=== PATIENT | male | born 1950 | race Caucasian/White ===

== ENCOUNTER → 2016-12-31 | Outpatient (CLI) | payer OTHER, MEDICARE | LOC: ULTRA 13:18 | DX: E03.9 Hypothyroidism, unspecified (principal) ==

== ENCOUNTER → 2017-05-04 | Outpatient (CLI) | payer OTHER ==
[~2017-05-04] MED LIST: APPLE CIDER VI300 MG PO; CENTRUM SILVER1 EAC4 PO; CLOTRIMAZOLE10 MG TOP; COZAAR 50 MG TA50 M2 PO; ESOMEPRAZOLE MA20 MG PO; FOLIC ACID 1 MG1 MG PO; KETOCONAZOLE15 GM TOP; LEVAQUIN 500 M500 M1 PO; MIRALAX17 GM PO; NAPROSYN500 MG PO; ONDANSETRON HCL4 M2 PO; PREDNISONE 10 M10 MG PO; TESTONE CI200 MG/1 M IM; TYLENOL PM EX-1 EACH PO; VIMOVO 500-201 EACH PO; VITAMIN C + RO500 MG PO; VITAMIN D-32000 UNIT PO; VITAMINC500 PO
== END ==
LOC: CAT 15:18
DX: Z13.6 Encounter for screening for cardiovascular disorders (principal)

== ENCOUNTER → 2017-05-05 | Outpatient (CLI) | payer OTHER, MEDICARE | LOC: RAD 13:50 | DX: R91.8 Other nonspecific abnormal finding of lung field (principal) ==

== ENCOUNTER → 2017-05-06 | Outpatient (CLI) | payer OTHER, MEDICARE ==
[2017-05-06 08:32] LABS: CREATININE 1.1 mg/dL (0.7-1.3)
== END ==
LOC: CAT 07:48
PROVIDERS: Family Medicine
DX: M47.894 Other spondylosis, thoracic region (principal); M48.061 Spinal stenosis, lumbar region without neurogenic claudication; R91.8 Other nonspecific abnormal finding of lung field; R16.1 Splenomegaly, not elsewhere classified

== ENCOUNTER → 2017-05-13 | Outpatient (CLI) | payer OTHER, MEDICARE | LOC: CAT 05-06 07:47 → MRI 10:09 → PUL 10:37 | DX: R91.8 Other nonspecific abnormal finding of lung field (principal); J32.9 Chronic sinusitis, unspecified ==

== ENCOUNTER → 2017-05-14 | Outpatient (CLI) | payer OTHER, MEDICARE | LOC: PET | DX: R91.8 Other nonspecific abnormal finding of lung field (principal) ==

== ENCOUNTER 2017-06-08 05:17 | Inpatient (IN) | payer OTHER, MEDICARE ==
[2017-06-03 10:35] LABS: ABSOLUTE NEUTROPHILS 6.8 thou/uL (1.4-8.2); BASOPHILS 0.4 % (0.0-2.0); EOSINOPHILS 2.5 % (0.0-3.0); HEMATOCRIT 41.1 % (42.0-52.0); HEMOGLOBIN 14.2 gm/dL (14.0-18.0); LYMPHOCYTES 22.7 % (24.0-44.0); MCH 31.5 pg (26.0-34.0); MCHC 34.5 g/dL (28.0-37.0); MCV 91.3 fL (80.0-100.0); MONOCYTES 8.2 % (1.0-8.0); PLATELET COUNT 263 thou/uL (150-400); POLYS 66.2 % (36.0-66.0); WBC 10.3 thou/uL (4.0-11.0)
[2017-06-03 10:40] LABS: URINE BILIRUBIN NEGATIVE (Negative); URINE BLOOD NEGATIVE (Negative); URINE CLARITY CLEAR; URINE COLOR YELLOW; URINE GLUCOSE-RANDOM* NEGATIVE (Negative); URINE KETONES NEGATIVE (Negative); URINE LEUKOCYTES NEGATIVE (Negative); URINE NITRITE NEGATIVE (Negative); URINE PROTEIN (DIPSTICK) NEGATIVE (Negative)
[2017-06-03 10:47] LABS: APTT 31.1 Seconds (24.5-32.8)
[2017-06-03 10:51] LABS: ALBUMIN 3.8 g/dL (3.4-5.0); CALCIUM 9.4 mg/dL (8.5-10.1); CREATININE 1.1 mg/dL (0.7-1.3); POTASSIUM 4.4 mmol/L (3.5-5.1)
[~2017-06-08] VITALS: Ht 167.6 cm; Wt 100.0 kg
--- NOTE | ~2017-06-08 | HC ---
[facility] [place] [address] CONSULTATION Name: ISRAEL HOLMAN Room #: 213-P ADM IN M.R.#: [id number] Admission: 06/08/17 Attend Phys: Nasim Ohara MD Discharge: Date of : 52 Report #: [id number] THIS REPORT FOR: //name// CC: Logan Guthrie MD PHYSICIAN REQUESTING CONSULTATION: Nasim Ohara MD. REASON FOR CONSULTATION: Left lower lobe lung cancer. HISTORY OF PRESENT ILLNESS: The patient is a very pleasant 66-year-old gentleman who grew up lives in [place], [place]. He was undergoing a cardiac evaluation because of unusual hypertension higher in his right arm than the left arm, was found to have a left lower lobe mass. This measured approximately 6 cm in diameter. A PET scan showed that this was PET avid but did not show up any mediastinal lymph nodes. An MRI of the brain was reported negative also. Reports are that his pulmonary function tests were normal. The patient underwent surgery on 06/08/2017. I talked with Dr. Ohara and he states that were thought that the lymph nodes and mediastinal appeared fairly normal. On exam, he is concerned about an intralobar lymph node. The patient is now postop in room 213 on the PCU. The patient says that prior to surgery, he had no unusual fevers, chills, has lost about 5 pounds since admission, had not had any new reflux. Had not had any new skin rashes. Had not had any diarrhea, constipation, dysuria, though he states his urine is slow. No blood in his urine or stool. I believe he says he has never had a colonoscopy, which we may need to address or should address when he is out of the hospital. Today, he is having some chest discomfort on the left side from the surgery, but appears otherwise has been doing well. SOCIAL HISTORY: As mentioned above, he is originally from [place]. 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 He stopped smoking 5 years ago. Prior to that, 1 pack per day for 20 years. There may have been some asbestos exposure with his work. We did have to clarify that may be and a fairly regular basis, has either 2-3 beers at night or one mixed drink. No street drugs. FAMILY HISTORY: Father from what sounds like lymphoma. Mother had scleroderma and from complications. One brother alive and well, one stepchild. He also has a grandchild who is a son who is 14 years old and both are very smart and a good athlete, sounds like the grandson plays baseball and went to the [employer] so to speak, I think he said in [place] and the grandson is a catcher. [facility] [address] [place] [address] CONSULTATION Name: ISRAEL HOLMAN Room #: 213-P ADM IN M.R.#: [id number] Admission: 06/08/17 Attend Phys: Nasim Ohara MD Discharge: Date of : 52 Report #: [id number] PAST MEDICAL HISTORY: Recent resection of left lower lobe mass, pathology pending. Also, history of severe right ankle arthritis. He has talked with Dr. Bernard about possible fusion in the future. He also has a history of low testosterone levels, has been on testosterone replacement, also has GERD. We will have to check to see if he has ever had a scope test. Also, he has been on losartan and ascorbic acid. PAST SURGICAL HISTORY: Includes appendectomy. PHYSICAL EXAMINATION: GENERAL: The patient appears his stated age. VITAL SIGNS: He is currently seated in a chair with a chest tube and oxygen nasal cannula. He states he was not on oxygen at home, height is 5 feet 6 inches, which is 167.6 cm. Weight is 220.4 pounds, which is 99.97 kilograms. Vital signs this morning include a blood pressure of 105/68 with an O2 sat of 96% on 2 liters, respirations 19, pulse 79, temperature is afebrile at 97.7. MOOD: The patient is alert, pleasant and conversant. NEUROLOGIC: The patient's face is symmetrical. Speech pattern and thought pattern appear to be normal. He is moving all extremities. In general, he has awareness of touch in all extremities. His voice is a little bit raspy today since the surgery. He says he gets a little better as the day goes along. LUNGS: Slightly decreased in the left lower base. HEART: Appears regular rate. No definite murmurs. ABDOMEN: Slightly obese. LYMPHATICS: No enlarged lymph nodes in the supraclavicular, cervical, axillary or inguinal region. EXTREMITIES: May have trace edema. LABORATORY HERE: Here this admit include BUN of 20, creatinine of 1.1, AST 21, ALT 26, albumin was 3.8, total protein 7.8. Electrolytes were normal. White count on admission 15.5, hemoglobin 12.6, platelets 298. Differential nonacute. UA did not have any red cells, white cells, nitrite was negative. RADIOLOGIC STUDIES: The patient had a CT calcium test on 05/04/2017, reports not available. He had a CT chest, abdomen and pelvis on 05/06/2017 showing a large left lower lobe mass extending from the hilum to the pleural suspicious for malignancy with a mildly large AP window and mediastinal lymph node. There is also sclerosis and degenerative changes in the spine. MRI head done on 05/13/2017, which was described as no abnormal intracranial process. We did show sinusitis PET scan on 05/14/2017 was whole body and described a fluid filled cavitary mass in the upper portion of the left lower lobe measuring 59 mm transverse by 42 mm AP x 50 mm longitudinally strong FDG accumulation with an SUV of 19 confined to the margins of the mass. No evidence of extension to the left niyah, no evidence of hilar adenopathy. No mediastinal adenopathy or mass. No other pulmonary uptake identified. Normal activity in the abdomen, no evidence of abnormal adrenal activity. [address] [address] CONSULTATION Name: ISRAEL HOLMAN Room #: 213-P ADM IN M.R.#: [id number] Admission: 06/08/17 Attend Phys: Nasim Ohara MD Discharge: Date of : 52 Report #: [id number] DISCUSSION: Discussed with the patient that we are concerned and he has a nonsmall cell lung cancer. Discussed that we are awaiting the stage of this. It may be of a size such that adjuvant chemotherapy might be a consideration. consider chemotherapy because of a potential additional survival benefit between 8% and 12% to await the final stage to clarify this with the patient. Also told him that if we do decide to do adjuvant chemotherapy, which he has initiated, 4-6 weeks after surgery. ASSESSMENT AND PLAN: 1. Probable left lower lobe bronchogenic carcinoma. Await final path report and we will clarify further with the patient treatment options with regard to adjuvant therapy. 2. Hypertension. Continue Meds as needed. 3. testosterone Meds as needed. 4. Reflux. Continue acid blockers. We will follow with you. CURRENT MEDICATIONS: Being administered in the hospital include losartan 100 mg daily, famotidine 20 mg b.i.d., docusate 100 mg b.i.d., fentanyl RESIN MAKER, electrolyte replacements with potassium and magnesium, bisacodyl, Reglan 5 mg q.6h. IV p.r.n., Zofran 4 mg q.6IV p.r.n., hydrocodone p.r.n., Tylenol p.r.n. <ELECTRONICALLY SIGNED> By: Sammy Coronado MD 06/11/17 0743 0811 1814 Sammy Coronado MD /nt
--- NOTE | ~2017-06-08 | HC ---
[facility] [place] [address] CONSULTATION Name: ISRAEL HOLMAN Room #: 213-P [facility] IN M.R.#: [id number] Admission: 06/08/17 Attend Phys: Nasim Ohara MD Discharge: 06/14/17 Date of : 52 Report #: [id number] THIS REPORT FOR: //name// CC: PACO THOMAS DATE OF SERVICE: 06/09/2017 REFERRING PROVIDER: Dr. Nasim Ohara. REASON FOR CONSULTATION: Lung cancer. HISTORY OF PRESENT ILLNESS: Our group was asked to evaluate the patient while hospitalized at [facility], known to me from preoperative workup. He is a pleasant 66-year-old male who we have been evaluating preoperatively for left lower lobe lung mass 6 cm in diameter noted coincidentally when the patient was undergoing a cardiac calcium score, a PET imaging preoperatively showed only uptake in the mass with no nodes positive. MRI of the brain was negative. The patient's pulmonary function testing was good. The patient has had significant exposures in the past that were work-related and about [id number] history of tobacco use. The patient underwent left lower lobectomy yesterday. He is doing well postoperatively, up in the chair with reasonable pain control with epidural. No significant air leak noted ____ left chest. ALLERGIES: None known. PAST MEDICAL HISTORY: 1. Hypertension. 2. Gastroesophageal reflux disease. OUTPATIENT MEDICATIONS: Include Naprosyn, testosterone, multivitamin, losartan, Nexium and ascorbic acid. PAST SURGICAL HISTORY: Include appendectomy. SOCIAL HISTORY: Prior tobacco use of [id number], quitting about 5 years ago. No significant alcohol consumption, perhaps 4-5 alcoholic beverages per week. 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 REVIEW OF SYSTEMS: Twelve-point review of systems is negative except as described in HPI and some nocturia. [facility] [address] [place] [address] CONSULTATION Name: ISRAEL HOLMAN Room #: 213-P [facility] IN [facility].#: [id number] Admission: 06/08/17 Attend Phys: Nasim Ohara MD Discharge: 06/14/17 Date of : 52 Report #: [id number] PHYSICAL EXAMINATION: VITAL SIGNS: He is afebrile, pulse 100 and regular, respiratory rate 18, blood pressure is 142/73. GENERAL: This is a pleasant elderly male, in no distress. ENT: Clear oropharynx. NECK: Supple, no lymphadenopathy. LUNGS: Diminished on the left with pleural friction rub noted. CARDIOVASCULAR: Heart regular, but tachycardic. ABDOMEN: Soft, nontender, no masses. EXTREMITIES: With trace edema. LABORATORY DATA: Chest x-ray revealed left chest tubes in place, minimal atelectasis in the right lung. White blood cell count 16,000, hemoglobin 13, hematocrit 36, platelet count 298. Sodium 138, potassium 4.6, chloride 104, bicarbonate 24, BUN 20, creatinine 1.1, glucose 136. IMPRESSION: 1. Malignancy status post left lower lobe lobectomy. 2. History of hypertension. SUGGESTIONS: 1. Oncology consultation. 2. Mobilize as tolerated. 3. Keep in ICU, likely stable to transfer out tomorrow if remains improved. We will continue to follow while inpatient. <ELECTRONICALLY SIGNED> By: Cristobal Guthrie MD 06/16/17 1233 1717 2209 Cristobal Guthrie MD /nt
--- NOTE | ~2017-06-08 | EKG ---
[address] [place] [address] ELECTROCARDIOGRAM REPORT Name: ISRAEL HOLMAN Room #: PRE IN [facility]#: [id number] Admission: Attend Phys: Nasim Ohara MD Discharge: Date of : 52 Report #: [id number] THIS REPORT FOR: //name// [facility] Test Date: 2017-06-03 Test Time: 10:18:13 Pat Name: ISRAEL HOLMAN Department: Room: Gender: Still Operator: Ac GARCES : 1950 Requested By: Nasim Ohara Order Number: [id number] MD: Lizandro Estrada Measurements Intervals [place] Rate: 63 P: 46 MA: 131 QRS: 6 QRSD: 84 T: 31 QT: 449 QTc: 460 Interpretive Statements Sinus rhythm Normal tracing No previous ECG available for comparison Electronically Signed On 06-03-2017 16:00:39 MECHANICAL MAINTENANCE by Lizandro Estrada [email or web address] <ELECTRONICALLY SIGNED> By: Lizandro Estrada MD, [facility] 06/03/17 1600 1018 1018 Lizandro Estrada MD, FACC /EPI
--- NOTE | ~2017-06-08 | HC ---
[facility] [place] [address] CONSULTATION Name: ISRAEL HOLMAN Room #: 213-P [facility] IN M.R.#: [id number] Admission: 06/08/17 Attend Phys: Nasim Ohara MD Discharge: 06/14/17 Date of : 52 Report #: [id number] THIS REPORT FOR: //name// CC: Logan Coronado MD DATE OF SERVICE: 06/10/2017 CHIEF COMPLAINT: Status post left lower lobectomy for lung mass. HISTORY OF PRESENT ILLNESS: The patient is a 66-year-old white male well known to me as I provided primary medical care. He was found to have a large lung mass and was admitted on June 08 for resection of his left lower lobe. He is doing well postoperatively and initial cath does show nonsmall cell lung cancer. This mass was noted as an incidental finding when he was sent in late April for calcium score for screening for coronary artery disease. Subsequently, a CT was done that showed large mass. CT chest, abdomen and pelvis were done subsequently and were free of lesions and subsequent to that he had MRI of the brain that was also free of disease. He has seen Dr. Guthrie, [employer] architect in Pulmonary Medicine consultation and he is admitted to Dr. Ohara's service for surgery. PAST MEDICAL HISTORY: Arthritis, multiple ankle sprains, pilonidal cyst, appendectomy, hypogonadism, hypertension diagnosed in 2011, recent diagnosis of lung mass, gastroesophageal reflux disease. PAST SURGICAL HISTORY: Includes appendectomy. MEDICATIONS: Naprosyn, IM testosterone, multivitamins, losartan 100 mg 1 p.o. daily, Nexium 20 mg 1 p.o. daily, vitamin C 500 mg p.o. daily, testosterone 200 mg IM q.2-4 weeks. ALLERGIES: No known drug allergies. SOCIAL HISTORY: , has a prior tobacco use of 20 pack years, quitting 5 years ago. Drinks alcohol socially. 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 He is and lives in [place], [place]. FAMILY HISTORY: Father had cancer involving his lymph nodes. Mother of scleroderma, no family history of colon cancer. REVIEW OF SYSTEMS: GENERAL: No fever, chills, nausea, vomiting, diarrhea. [facility] [address] [place] [address] CONSULTATION Name: ISRAEL HOLMAN Room #: 213-P [facility] IN .R.#: [id number] Admission: 06/08/17 Attend Phys: Nasim Ohara MD Discharge: 06/14/17 Date of : 52 Report #: [id number] EYES: No visual changes. ENT: No problems with hearing, swallow, taste or smell. CARDIOVASCULAR: No chest pain or palpitations. RESPIRATORY: He has a confirmed lung mass. He has had a cough over about the last 6 months. GASTROINTESTINAL: No abdominal pain. GENITOURINARY: No problems urinating. MUSCULOSKELETAL: No muscle pain. He does have arthritis. NEUROLOGIC: No paresis, paralysis or paresthesias. PSYCHIATRIC: Concerned but not depressed. DERMATOLOGIC: No disturbing lesions or rash. Remainder of system review is negative. OBJECTIVE: VITAL SIGNS: Afebrile, respiratory rate 18, pulse 100, blood pressure 142/73. GENERAL: He is in no acute distress. He has a left-sided chest tube. HEENT: Pupils equal, round, reactive to light and accommodation. Extraocular muscles intact. Pharynx unremarkable. NECK: Supple. COR: S1, S2. CHEST: Few coarse breath sounds, diminished on left side. ABDOMEN: Soft, nontender. EXTREMITIES: No edema. NEUROLOGIC: Intact without focal deficits. Chest x-ray shows atelectasis in the right lung, linear and multifocal in the right base, left chest tubes in place. LABORATORY DATA: White count 16,000, hemoglobin 13, hematocrit 36, platelets 298. Sodium is 138, potassium 4.6, chloride 104, bicarbonate 24, BUN 20, creatinine 1.1, glucose 136. ASSESSMENT: 1. Lung cancer, new diagnosis. 2. Status post left lower lobectomy. 3. Postop state with chest tube. 4. Atelectasis. 5. Hypertension. 6. Remote history of tobaccoism. RECOMMENDATIONS: Continue current meds and care. Discussed incentive [address] [address] CONSULTATION Name: ISRAEL HOLMAN Room #: 213-P [facility] IN ..#: [id number] Admission: 06/08/17 Attend Phys: Nasim Ohara MD Discharge: 06/14/17 Date of : 52 Report #: [id number] spirometry, early mobility and Oncology and Radiation Oncology consult is working. <ELECTRONICALLY SIGNED> By: Logan Tian MD, IDRIS, FACEP 06/16/17 1001 1310 1528 Logan Tian MD, IDRIS, FACEP /nt
--- NOTE | ~2017-06-08 | S ---
[facility] [place] [address] SURGICAL PATH RPT PROCEDURE Name: TOMMY MELO Room #: 213-P DIS IN M.R.#: [id number] Admission: 06/08/17 Date of : 52 Discharge: 06/14/17 Report #: [id number] Path Case #: [id number] PATHOLOGY REPORT COLLECTION DATE: 06/08/2017 RECEIVED DATE: 06/08/2017 SUBMITTING PHYS: Dr. Nasim Ohara OTHER PHYS: Dr. Logan Guthrie ADDENDUM REPORT (Order Date: 06/14/2017 10:57) ADDENDUM COMMENT: This addendum is issued subsequent to reviewing a well-controlled AE1/AE3 immunohistochemical stain ordered after discussing the case with Dr. Guthrie. AE1/AE3 immunohistochemical stain performed on block D1 - no definite intact malignant epithelial cells identified within the artery or the surrounding soft tissue. The immunohistochemical stain likely supports no evidence of malignancy at the new "pulmonary artery" margin. The non-reactivity; however, may be due to lack of intact epithelial cells as well as the crush artifact identified. Clinical correlation is required. These findings are communicated to Dr. Cristobal Guthrie at approximately 10:20 a.m. on 06/14/2017. (IUV:sherley; 06/14/2017) Professional services performed by [facility] at [facility] [address] [place] [address] Technical services performed by [facility] at [address] [place] [address], [address] [place] [address]. ELECTRONICALLY SIGNED BY: Ashlee Helms M.D. DATE/TIME:06/14/2017 14:44 SPECIMEN(S) RECEIVED: A.L subcarinal lymph node B.L inferior pumonary ligament C.Pulmonary artery D.Additional pulmonary artery E.Lymph node level 11 F.Left lower lobe G.Lymph node level 5 * * * * * * * * * * * * [facility] [address] [place] [address] SURGICAL PATH RPT PROCEDURE Name: TOMMY MELO Room #: 213-P [facility] IN [facility]#: [id number] Admission: 06/08/17 Date of : 52 Discharge: 06/14/17 Report #: [id number] Path Case #: [id number] FINAL DIAGNOSIS: A. Lymph nodes (2), left subcarinal lymph node, dissection: - Reactive lymph nodes with macrophages; negative for malignancy (0/2). B. Lymph node (1) left inferior pumonary ligament, biopsy: - Reactive lymph node with pigmented macrophages; negative for malignancy (0/1). C. Artery, pulmonary artery, biopsy: - POSITIVE FOR MALIGNANCY; NON-SMALL CELL CARCINOMA PRESENT. D. Artery, additional pulmonary artery, biopsy: - ATYPICAL CRUSHED CELLS, CANNOT EXCLUDE NEOPLASTIC CELLS (PLEASE SEE COMMENT). E. Lymph nodes (2), lymph node level 11, dissection: - Reactive lymph nodes with macrophages; negative for malignancy (0/2). F. 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 - PULMONARY ARTERY AT MARGIN POSITIVE FOR MALIGNANCY. - LYMPHOVASCULAR SPACE INVASION PRESENT. - ONE HILAR LYMPH NODE POSITIVE FOR METASTATIC CARCINOMA DUE TO DIRECT EXTENSION (1/1). G. Lymph nodes (6), lymph node level 5, dissection: - Reactive lymph nodes with pigmented macrophages; negative for malignancy (0/6). SYNOPTIC CANCER STAGING REPORT SPECIMEN Procedure: Lobectomy Specimen Laterality: Left TUMOR Tumor Site: Lower lobe Histologic Type: Invasive squamous cell carcinoma, keratinizing Histologic Grade: G2: Moderately differentiated Tumor Size: For histologic types other than invasive nonmucinous adenocarcinoma with a lepidic component Tumor Size: Greatest dimension in Centimeters (cm): 6.6 Additional Dimension in Centimeters (cm): 5.5 Additional Dimension in Centimeters (cm): 4.2 Tumor Focality: Single tumor Tumor Extent Visceral Pleura Invasion: Not identified Direct Invasion of Adjacent Structures: Adjacent structures present and involved Great vessels Accessory Findings Treatment Effect: No known presurgical therapy [address] [address] SURGICAL PATH RPT PROCEDURE Name: RIVERTOMMY New Room #: 213-P [facility] IN M.R.#: [id number] Admission: 06/08/17 Date of : 52 Discharge: 06/14/17 Report #: [id number] Path Case #: [id number] Lymphovascular Invasion: Present Arterial MARGINS Margins: One or more margins are involved by carcinoma, or any margin cannot be assessed Bronchial Margin: Uninvolved by invasive carcinoma Status of Carcinoma in Situ at Bronchial Margin: Uninvolved by carcinoma in situ Vascular Margin: Involved by carcinoma Parenchymal Margin: Uninvolved by invasive carcinoma Other Attached Tissue Margin(s) (repeat as needed) Specify Margin(s): Specify margin: Pulmonary artery Margin Status: Involved by invasive carcinoma LYMPH NODES Regional Lymph Nodes: Number of Lymph Nodes Involved: Number of Lymph Nodes Involved: Specify number: 1 Charles Stations Involved: 10L: Hilar Extranodal Extension: Present Number of Lymph Nodes Examined: Specify number: 12 Charles Stations Examined: 7: Subcarinal 5: Subaortic/ aortopulmonary (AP) / AP window 9L: Pulmonary ligament 10L: Hilar 11L: Interlobar PATHOLOGIC STAGE CLASSIFICATION (PTNM, AJCC 8TH EDITION) Primary Tumor (pT): pT4: Tumor > 7 cm in greatest dimension; or tumor of any size invading one or more of the following: diaphragm, mediastinum, heart, great vessels, trachea, recurrent laryngeal nerve, esophagus, vertebral body or chika; or separate tumor nodule(s) in an ipsilateral lobe different from that of the primary Regional Lymph Nodes (pN): pN1: Metastasis in ipsilateral peribronchial and / or ipsilateral hilar lymph nodes, and intrapulmonary nodes including involvement by direct extension COMMENT: D: Examination shows markedly crushed atypical epithelioid cells present within the soft tissue surrounding the vessel wall. These cells are highly suspicious for malignant epithelial cells. A definitive diagnosis is precluded due to the crush artifact as well as frozen section artifact present in this tissue. Motor Bus Driver slides (C1, D1, F3) are co-reviewed by Dr. Alee Watson, who concurs with my diagnosis. (IUV:mgr; 06/10/2017) PATHOLOGIST: Ashlee Helms M.D. [facility] [place] [address] SURGICAL PATH RPT PROCEDURE Name: TOMMY MELO Room #: 213-P DIS IN M.R.#: [id number] Admission: 06/08/17 Date of : 52 Discharge: 06/14/17 Report #: [id number] Path Case #: [id number] REPORT ELECTRONICALLY SIGNED BY: Ashlee Helms M.D. DATE/TIME: 06/10/2017 16:58 * * * * * * * * * * * * GROSS PATHOLOGY: A. Received fresh from the OR is a specimen labeled with the patient's name, medical record number and "left subcarinal lymph node". The specimen consists of a fragment of pink-yellow, fibrofatty tissue measuring 2.0 x 0.4 x 0.3 cm. Two dark purple lymph nodes are discovered through palpation measuring 0.8 cm and 0.6 cm in greatest diameter. The specimen is entirely submitted for frozen section in one cassette labeled A1. B. Received fresh from the OR and labeled with the patient's name, medical record number and "left inferior pulmonary ligament", is a single fragment of yellow-pink, fibroadipose tissue measuring 1.5 x 1.3 x 0.4 cm. A single lymph node is discovered via palpation measuring 0.7 cm in greatest diameter and dark purple in color. The specimen is entirely submitted for frozen section in one cassette labeled B1. C. Received fresh from the OR and labeled with the patient's name, medical record number and "pulmonary artery", is a fragment of yellow-pink soft tissue measuring 1.5 x 0.7 x 0.4 cm. The specimen is entirely submitted for frozen section in one cassette labeled C1. D. Received fresh from the OR and labeled with the patient's name, medical record number and "additional pulmonary artery", is a fragment of yellow-pink soft tissue measuring 2.0 x 0.4 x 0.4 cm. The specimen is entirely submitted for frozen section in one cassette labeled D1. (MAP/db; 06/09/2017) E. The specimen is received in formalin labeled "Tommy Melo, lymph node level XI". Received are two segments of buitrago-brown lobulated tissue measuring 1.2 x 0.7 x 0.1 and 1.1 x 1.1 x 0.6 cm in greatest dimensions. The larger segment is inked. Sectioning through the larger segment reveals dark brown to black Surfaces. The smaller segment is submitted intact in the larger segment is bisected. The specimen is submitted entirely in cassette E1. F. The specimen is received in formalin labeled "Tommy Melo, left lower lobe". Received is a 362 g lobe of lung measuring 16.6 x 11.5 x 6.2 cm in greatest dimensions. The bronchial and arterial margins are opened. The adjacent vein margin is stapled closed. The pleural surface is pink-buitrago and slightly wrinkled in appearance. Near the bronchial margin, the lung is firm and the surrounding pleural surface is inked blue. Sectioning reveals a large white-white, friable to hemorrhagic-appearing mass measuring 6.6 x 5.5 x 4.2 cm, which grossly abuts the bronchial and arterial margin. The center of the mass is cavitary and the periphery is solid to moderately friable in appearance. The remainder of the lobe is comprised of normal red-white [facility] [address] [place] [address] SURGICAL PATH RPT PROCEDURE Name: TOMMY MELO Room #: 213-P DIS IN M.R.#: [id number] Admission: 06/08/17 Date of : 52 Discharge: 06/14/17 Report #: [id number] Path Case #: [id number] brown lung parenchyma, with no additional nodules or lesions noted grossly. Sectioning through the specimen near the bronchial margin reveals a single possible lymph node, displaying waxy cut surfaces, measuring 1.0 cm in maximum dimensions. F1 bronchial and adjacent vascular margin, en face F2 adjacent vein margin, en face F3 client care representative section of mass and adjacent bronchus F4-F8 additional client care representative sections of mass F9 client care representative sections of uninvolved parenchyma F10 possible lymph node near bronchial margin. Gross photographs are taken. G. The specimen is received in formalin labeled "Tommy Melo, lymph node level V". Received are multiple segments of yellow-white lobulated tissue measuring 1.8 x 1.7 x 0.5 cm in aggregate dimensions. Dissection and palpation of the specimen reveals no readily identifiable lymph node. The specimen is submitted entirely in cassette G1. (CAA; 06/09/2017) FROZEN SECTION DIAGNOSIS: (Jeanne Monterroso M.D.) FSA1. Left subcarinal lymph node: - Two lymph nodes negative for malignancy. FSB1. Left inferior pulmonary ligament: - One lymph node negative for malignancy. - These results were discussed with Dr. Ohara on 06/08/17 at 1539 hours. FSC1. Pulmonary artery: - Positive for malignancy. - These results were discussed with Dr. Ohara on 06/08/17 at 1609 hours. FSD1. Additional pulmonary artery: - Negative for malignancy. - These results were discussed Dr. Ohara on 06/08/17 at 1638 hours. (MAP/db; 06/09/2017) Testing performed by [facility] at [facility] [place] [address] CLINICAL HISTORY: Left lung mass INITIAL CPT CODE(S): A; 65492, 09372 B; 88318, 52943 C; 93079, 91075 D; 58846, 82852, 44440 [facility] [place] [address] SURGICAL PATH RPT PROCEDURE Name: TOMMY MELO Room #: 213-P [facility] IN M.R.#: [id number] Admission: 06/08/17 Date of : 52 Discharge: 06/14/17 Report #: [id number] Path Case #: [id number] E; [id number] F; [id number] G; [id number] Professional services performed by [facility] at [place] [address], [place] [address] Technical services performed by [facility] at [address] [place] [address], [place] [address]. [facility] [address] [place] [address] PHONE: [phone] DIRECTOR: Preston Edmondson M.D. * * * END OF REPORT * * *
--- NOTE | ~2017-06-08 | O ---
[facility] [place] [address] OPERATIVE REPORT Name: ISRAEL HOLMAN Room #: 213-P [facility] IN M.R.#: [id number] Admission: 06/08/17 Attend Phys: Nasim Ohara MD Discharge: 06/14/17 Date of : 52 Report #: [id number] THIS REPORT FOR: //name// CC: Logan Coronado MD DATE OF SERVICE: 06/08/2017 PREOPERATIVE DIAGNOSIS: Left lower lobe mass. 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 OPERATIVE PROCEDURE PERFORMED: 1. Left thoracotomy with left lower lobe lobectomy. 2. Thoracic lymphadenectomy. SURGEON: Nasim Ohara MD FILER AND SANDER: Gerardo Kaufman. ANESTHESIA: General. OPERATIVE INDICATIONS: The patient is a 66-year-old male who was recently found to have a large mass in his left lower lobe on chest x-ray. Evaluation with CT scan confirmed the mass. It showed no evidence of significant mediastinal adenopathy. PET imaging demonstrated no evidence of metastatic disease and there was a large SUV indicating increased uptake in the left lower lobe. The patient was brought to the operating room now for further evaluation and management. OPERATIVE SUMMARY: The patient was brought to the operating room, placed on the OR table in supine position. After anesthesia was induced via the general endotracheal route and monitoring lines were positioned, the patient was placed in the right lateral decubitus position and prepped and draped in sterile fashion with chlorhexidine. It should be noted that an epidural catheter was placed preoperatively. A standard posterolateral thoracotomy incision was made on the patient's left side. Dissection was carried down through the latissimus dorsi muscle and we entered the pleural space through the fifth intercostal space. We immediately noted that there were dense adhesions between the upper lobe and lower lobe and also between both upper and lower lobes to the chest wall in the apical segment of the lower lobe. These adhesions were taken down with electrocautery; however, to gain full exposure we did divide the 5th rib, but did not resect any rib. There was no evidence of tumor encroachment into the wall, but we did remove parietal pleura to mobilize the pulmonary segment. [facility] [address] [place] [address] OPERATIVE REPORT Name: RIVERISRAEL New Room #: 213-P [facility] IN ..#: [id number] Admission: 06/08/17 Attend Phys: Nasim Ohara MD Discharge: 06/14/17 Date of : 52 Report #: [id number] Next, we mobilized the inferior pulmonary ligament and navigated and mobilized the hilum. We dissected nodes in the subcarinal space at this time, in which there were positive nodes noted. We also dissected nodes in the inferior pulmonary ligament. We dissected the inferior pulmonary vein from surrounding tissue and divided it with an Endo-ADILIA stapler. Next, we attempted to mobilize in the fissure. We could do so in the proximal and distal aspects of the fissure, but in the mid aspect the upper and lower lobes were well adhesed to one another. I used an Endo-ADILIA stapler to divide a small portion of the right upper lobe to include with the specimen. Using the stapler and electrocautery, we were able to work our way down to the fissure into the pulmonary artery. We carefully dissected away upper lobe and lower lobe from the pulmonary artery. Despite this, we were unable to place a stapler across the artery in the fissure and preserve upper lobe vessels. I therefore placed a Satinsky clamp on the pulmonary artery shifting it proximally and then dividing the artery distally. The artery was then oversewn with a 4-0 Prolene suture in 2 layers and the clamp was removed. Hemostasis was readily apparent. The bronchus was dissected and then divided with a TA 30 stapler. The specimen was removed. Frozen section analysis demonstrated the presence of atypical cells and possibly tumor on the pulmonary vascular margin. I therefore went back reclamped the pulmonary artery more proximally with a Satinsky clamp, excised the prior suture line and then reclosed the artery with 4-0 Prolene suture in 2 layers. Again, hemostasis was achieved. Further lymph nodes were dissected in level 11 and also level 5. Once appropriate hemostasis was achieved, the rib that had been cut was reapproximated by using a drill and special suture to extend into both segments of the rib. Two 28-English chest tubes were placed in the left pleural space, one in the apex, one along the diaphragm. They were brought out through separate stab incisions. The ribs were reapproximated with #1 PDS. The muscular layers closed with #1 Vicryl, subQ fascia with 2-0 Vicryl and the skin with 3-0 Monocryl. The procedure was completed. The patient was taken to the postanesthesia care unit in stable condition. The operative blood loss was approximately 75 mL. There were no intraoperative complications noted. All sponge and needle counts were reported as correct. <ELECTRONICALLY SIGNED> By: Nasim Ohara MD 06/29/17 1510 1626 1709 Nasim Ohara MD /nt
[~2017-06-08 05:17] MED LIST changes: -APPLE CIDER VI300 MG PO; -CLOTRIMAZOLE10 MG TOP; -ESOMEPRAZOLE MA20 MG PO; -FOLIC ACID 1 MG1 MG PO; -KETOCONAZOLE15 GM TOP; -LEVAQUIN 500 M500 M1 PO; -MIRALAX17 GM PO; -NAPROSYN500 MG PO; -ONDANSETRON HCL4 M2 PO; -PREDNISONE 10 M10 MG PO; -TYLENOL PM EX-1 EACH PO; -VITAMIN C + RO500 MG PO
[2017-06-08 13:55] VITALS: BP 111/73
[2017-06-09] VITALS (10 sets, daily range): BP systolic 110–152; BP diastolic 65–92
[2017-06-09 05:41] LABS: HEMATOCRIT 36.6 % (42.0-52.0); HEMOGLOBIN 12.6 gm/dL (14.0-18.0); MCH 31.2 pg (26.0-34.0); MCHC 34.4 g/dL (28.0-37.0); MCV 90.5 fL (80.0-100.0); RBC 4.05 mil/uL (4.50-6.00); RDW 13.8 % (10.5-14.5); WBC 15.5 thou/uL (4.0-11.0)
[2017-06-09 06:02] LABS: CALCIUM 8.2 mg/dL (8.5-10.1); CREATININE 1.1 mg/dL (0.7-1.3); POTASSIUM 4.6 mmol/L (3.5-5.1)
[2017-06-10 04:46] VITALS: BP 105/68
[2017-06-10 09:02] VITALS: BP 103/63
[2017-06-10 11:44] VITALS: BP 98/65
[2017-06-10 16:08] VITALS: BP 109/71
[2017-06-10 19:45] VITALS: BP 123/74
[2017-06-11 04:47] VITALS: BP 122/83
[2017-06-11 08:00] VITALS: BP 138/87
[2017-06-11 12:00] VITALS: BP 119/78
[2017-06-11 16:00] VITALS: BP 129/68
[2017-06-11 19:41] VITALS: BP 137/79
[2017-06-12 04:11] VITALS: BP 122/77
[2017-06-12 04:23] LABS: CALCIUM 9.1 mg/dL (8.5-10.1); CREATININE 1.8 mg/dL (0.7-1.3); POTASSIUM 3.9 mmol/L (3.5-5.1)
[2017-06-12 05:37] LABS: HEMATOCRIT 34.1 % (42.0-52.0); HEMOGLOBIN 11.6 gm/dL (14.0-18.0)
[2017-06-12 06:57] LABS: URINE CREATININE-RANDOM* 184.9 mg/dL; URINE SODIUM-RANDOM* < 5.0 mmol/L
[2017-06-12 07:15] VITALS: BP 122/77
[2017-06-12 11:38] VITALS: BP 134/83
[2017-06-12 15:29] VITALS: BP 144/82
[2017-06-12 19:47] VITALS: BP 144/86
[2017-06-13 04:18] VITALS: BP 136/81
[2017-06-13 04:51] LABS: CALCIUM 8.6 mg/dL (8.5-10.1); CREATININE 1.4 mg/dL (0.7-1.3); POTASSIUM 4.2 mmol/L (3.5-5.1)
[2017-06-13 05:07] LABS: HEMATOCRIT 32.7 % (42.0-52.0); HEMOGLOBIN 11.1 gm/dL (14.0-18.0); MCH 31.3 pg (26.0-34.0); MCHC 34.1 g/dL (28.0-37.0); MCV 91.8 fL (80.0-100.0); RBC 3.56 mil/uL (4.50-6.00); RDW 13.8 % (10.5-14.5)
[2017-06-13 12:39] VITALS: BP 150/86
[2017-06-13 16:31] VITALS: BP 140/83
[2017-06-13 19:51] VITALS: BP 140/82
[2017-06-14 04:45] VITALS: BP 144/83
[2017-06-14 07:45] VITALS: BP 154/86
[2017-06-14 09:57] VITALS: BP 154/86
[2017-06-14 09:59] VITALS: BP 154/86
[2017-07-09] MEDS ORDERED: NAPROSYN500 MG PO (07:57)
[2017-07-09] MEDS ORDERED: ESOMEPRAZOLE MA20 MG PO (07:58)
[2017-07-09] MEDS ORDERED: VITAMIN C + RO500 MG PO (07:59)
[2017-07-09] MEDS ORDERED: CENTRUM SILVER1 EAC4 PO (08:04)
[2017-07-09] MEDS ORDERED: APPLE CIDER VI300 MG PO (08:05)
[2017-07-09] MEDS ORDERED: KETOCONAZOLE15 GM TOP (08:05)
[2017-07-09] MEDS ORDERED: CLOTRIMAZOLE10 MG TOP (08:06)
[2017-09-10] MEDS ORDERED: ONDANSETRON HCL4 M2 PO (10:44)
[2017-09-10] MEDS ORDERED: COZAAR 50 MG TA50 M2 PO (10:46)
[2017-09-20] MEDS ORDERED: MIRALAX17 GM PO (08:23)
[2017-09-20] MEDS ORDERED: TYLENOL PM EX-1 EACH PO (08:24)
== END 2017-06-14 11:00 | disposition home or self-care (01) | DRG 164 ==
LOC: TBA 05:17 → ICU 05:17 → PRE 05:32 → ICU 14:34 → TBA 14:43 → ICU 19:50 → 2N 06-09 19:16 → ENTRNSPT 06-14 10:33 → EDTRNSPTSTS 06-14 10:35 → 2N 06-14 11:00
PROVIDERS: Hospitalist; Nurse Practitioner; Thoracic Surgery (Cardiothoracic Vascular Surgery)
DX: C34.32 Malignant neoplasm of lower lobe, left bronchus or lung (principal); J98.11 Atelectasis; D62 Acute posthemorrhagic anemia; N17.9 Acute kidney failure, unspecified; M19.071 Primary osteoarthritis, right ankle and foot; R14.0 Abdominal distension (gaseous); K59.00 Constipation, unspecified; I10 Essential (primary) hypertension; K21.9 Gastro-esophageal reflux disease without esophagitis; Z90.49 Acquired absence of other specified parts of digestive tract; Z87.891 Personal history of nicotine dependence; Z83.49 Family history of other endocrine, nutritional and metabolic diseases; Z79.899 Other long term (current) drug therapy; Z28.21 Immunization not carried out because of patient refusal
CPT/HCPCS: 10081; 10204; 47405; 50010; 50101; 50318; 50386; 50417; 50455; 50497; 50739; 50740; 51301; 52301; 52303; 54022; 56524; 56525; 56526; 56527; 56528; 56530; 62110; 62900; 65002; 65040; 65075; 65105; 70005

== ENCOUNTER → 2017-06-28 | Outpatient (CLI) | payer OTHER, MEDICARE ==
[~2017-06-28] MED LIST changes: +APPLE CIDER VI300 MG PO; +CLOTRIMAZOLE10 MG TOP; +ESOMEPRAZOLE MA20 MG PO; +FOLIC ACID 1 MG1 MG PO; +KETOCONAZOLE15 GM TOP; +LEVAQUIN 500 M500 M1 PO; +MIRALAX17 GM PO; +NAPROSYN500 MG PO; +ONDANSETRON HCL4 M2 PO; +PREDNISONE 10 M10 MG PO; +TYLENOL PM EX-1 EACH PO; +VITAMIN C + RO500 MG PO
== END ==
LOC: RAD 08:15
DX: J98.4 Other disorders of lung (principal); M47.894 Other spondylosis, thoracic region; Z98.890 Other specified postprocedural states

== ENCOUNTER → 2017-07-09 | Outpatient (CLI) | payer OTHER, MEDICARE ==
[~2017-07-09] VITALS: Ht 167.6 cm; Wt 96.6 kg
[~2017-07-09] MED LIST changes: -FOLIC ACID 1 MG1 MG PO; -LEVAQUIN 500 M500 M1 PO; -MIRALAX17 GM PO; -ONDANSETRON HCL4 M2 PO; -PREDNISONE 10 M10 MG PO; -TYLENOL PM EX-1 EACH PO
[2017-07-09 07:49] VITALS: BP 102/69
[2017-07-09 08:16] LABS: HEMATOCRIT 32.5 % (42.0-52.0); HEMOGLOBIN 11.4 gm/dL (14.0-18.0); MCH 31.5 pg (26.0-34.0); MCV 90.1 fL (80.0-100.0); RBC 3.6 mil/uL (4.50-6.00); RDW 14.2 % (10.5-14.5); WBC 9.1 thou/uL (4.0-11.0)
[2017-07-09 08:31] LABS: PROTIME 10.2 Seconds (9.3-11.4)
[2017-07-09 08:34] LABS: CALCIUM 9.4 mg/dL (8.5-10.1); CREATININE 1.2 mg/dL (0.7-1.3)
== END | disposition home or self-care (01) ==
LOC: SPEC 07:28
PROVIDERS: Radiology Vascular & Interventional Radiology
DX: Z45.2 Encounter for adjustment and management of vascular access device (principal); C34.32 Malignant neoplasm of lower lobe, left bronchus or lung; I10 Essential (primary) hypertension; Z90.49 Acquired absence of other specified parts of digestive tract; Z87.891 Personal history of nicotine dependence; Z79.899 Other long term (current) drug therapy; Z79.01 Long term (current) use of anticoagulants

== ENCOUNTER → 2017-09-15 | Emergency (ER) | payer OTHER, MEDICARE ==
[~2017-09-15] VITALS: Ht 165.1 cm; Wt 94.3 kg
[~2017-09-15] MED LIST changes: +ONDANSETRON HCL4 M2 PO
--- NOTE | ~2017-09-15 | EKG ---
[address] [place] [employer] [place] [address] ELECTROCARDIOGRAM REPORT Name: ISRAEL HOLMAN Room #: [facility]#: [id number] Admission: 09/15/17 Attend Phys: Discharge: Date of : 52 Report #: [id number] THIS REPORT FOR: //name// [facility] ED Test Date: 2017-09-15 Test Time: 10:52:00 Pat Name: ISRAEL HOLMAN Department: Room: Gender: Hospital Clinic Assistant: JACE : 1950 Requested By: Eagle Garcia Order Number: [id number] MD: Zenon Sims Measurements Intervals [place] Rate: 86 P: 26 MD: 135 QRS: -13 QRSD: 81 T: 25 QT: 372 QTc: 445 Interpretive Statements Sinus rhythm Compared to ECG 06/03/2017 10:18:13 Electronically Signed On 09-16-2017 7:48:13 CDT by Zenon Sims [email or web address] <ELECTRONICALLY SIGNED> By: Zenon Sims MD 09/16/17 0748 1052 1052 MD SHAHNAZ Mathew
[2017-09-15 10:40] LABS: MCH 31.4 pg (26.0-34.0)
[2017-09-15 10:42] LABS: MCHC 36.2 g/dL (28.0-37.0); MCV 86.7 fL (80.0-100.0); RBC 2.12 mil/uL (4.50-6.00); RDW 16.1 % (10.5-14.5)
[2017-09-15 10:48] LABS: HEMATOCRIT 18.4 % (42.0-52.0); HEMOGLOBIN 6.7 gm/dL (14.0-18.0); WBC 2.3 thou/uL (4.0-11.0)
[2017-09-15 10:57] LABS: ANION GAP 8 mmol/L (7-16); BUN 37 mg/dL (7-18); CALCIUM 9.9 mg/dL (8.5-10.1); CHLORIDE 102 mmol/L (98-107); CO2 25 mmol/L (21-32); CREATININE 1.7 mg/dL (0.7-1.3); GLUCOSE 100 mg/dL (74-106); POTASSIUM 4.3 mmol/L (3.5-5.1); SODIUM 135 mmol/L (136-145)
[2017-09-15 11:06] LABS: TROPONIN-I < 0.04 ng/mL (<0.06)
[2017-09-15 11:07] LABS: ABSOLUTE NEUTROPHILS 1.6 thou/uL (1.4-8.2); ANISOCYTOSIS 1+; HYPOCHROMASIA 1+; PLATELET COUNT 30 thou/uL (150-400); PLATELET ESTIMATE DECREASED
[2017-09-15 16:17] VITALS: BP 108/64; BP 117/61
== END ==
LOC: OPONC 10:07 → ER 10:07
PROVIDERS: Emergency Medicine
DX: D64.89 Other specified anemias (principal); I10 Essential (primary) hypertension; R06.02 Shortness of breath; Z90.49 Acquired absence of other specified parts of digestive tract; Z87.891 Personal history of nicotine dependence

== ENCOUNTER 2017-12-27 11:54 | Inpatient (IN) | payer OTHER, MEDICARE ==
[~2017-12-27] VITALS: Ht 167.6 cm; Wt 90.3 kg
--- NOTE | ~2017-12-27 | H ---
[facility] [place] [address] HISTORY AND PHYSICAL Name: ISRAEL HOLMAN Room #: 451-P [facility] IN M.R.#: [id number] Admission: 12/27/17 Attend Phys: Logan Tian MD[facility] Discharge: 01/03/18 Date of : 52 Report #: [id number] THIS REPORT FOR: //name// CC: Logan Coronado MD DATE OF SERVICE: 12/27/2017 CHIEF COMPLAINT: Pneumonia. HISTORY OF PRESENT ILLNESS: The patient is a 67-year-old white male, patient of mine, with a recent history of lung cancer, status post lobectomy with left thoracotomy on 06/08/2017. He has undergone chemotherapy with oral medications as well as radiation therapy, which he recently finished. Last Wednesday, he had a PET scan and that showed some increased activity in the left perihilar region, thought to being pneumonia, as well this could represent a new malignant focus. He was started on Levaquin with Dr. Coronado that same day. He has been anemic and recently received 2 units of packed red blood cells. He was evaluated in the Emergency Department with a fever persisting despite several days of oral antibiotics with Levaquin. His white count is low at 3.9. He has a fever of 37.8 degrees centigrade. He is tachycardic with a pulse of 118. Pulse ox on room air is 100%, but he is slightly tachypneic at 25 respirations per minute. He was admitted for oral antibiotic therapy with pneumonia and further evaluation with the cancer team. PAST MEDICAL HISTORY: Lung cancer, left lower lobe lobectomy via left thoracotomy in 06/2017, cyst excised from tail bone, appendectomy, hypertension, chemotherapy and radiation therapy, Port-A-Cath placed on 07/09/2017 and blood transfusions. MEDICATIONS: Cozaar 100 mg p.o. daily, MiraLax and Tylenol as needed. ALLERGIES: No known drug allergies. SOCIAL HISTORY: He smoked in the past 20 years, quit smoking 5 years ago. Drinks alcohol socially. 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 He is and lives in , [place]. FAMILY HISTORY: Father had cancer involving his lymph nodes. Mother of scleroderma. No family history of colon cancer. REVIEW OF SYSTEMS: GENERAL: He has had a fever and chills, mild nausea. No vomiting. No diarrhea. [facility] [address] [place] [address] HISTORY AND PHYSICAL Name: ISRAEL HOLMAN Room #: 451-P [facility] IN [facility]#: [id number] Admission: 12/27/17 Attend Phys: Logan Tian MD, FAAF Discharge: 01/03/18 Date of : 52 Report #: [id number] EYES: No visual changes. ENT: No problems with hearing, swallow, taste or smell. CARDIOVASCULAR: No chest pain or palpitations. RESPIRATORY: He has got some congestion, cough and some dyspnea. Radiographically, findings consistent with pneumonia versus new metastatic disease. GASTROINTESTINAL: No abdominal pain. GENITOURINARY: No problems urinating. MUSCULOSKELETAL: No muscle or joint pain, except for his baseline arthritis. NEUROLOGIC: No paresis, paralysis or paresthesias. PSYCHIATRIC: Mood is good. DERMATOLOGIC: No disturbing lesions or rash. Remainder of system review is negative. PHYSICAL EXAMINATION: VITAL SIGNS: Temperature 37.8 centigrade, pulse 118, respirations 25, blood pressure 117/76 and pulse ox on room air 100%. He weighs 202 pounds or 91.63 kg. GENERAL: He is in no acute distress. HEENT: Pupils equal, round and reactive to light and accommodation. Extraocular muscles intact. Pharynx unremarkable. NECK: Supple. COR: S1, S2. CHEST: Few coarse breath sounds. ABDOMEN: Soft, nontender. EXTREMITIES: Nonedematous. NEUROLOGIC: He is intact, without focal deficits. LABORATORY DATA: CBC: White count is 3.9, hemoglobin 7.7, hematocrit 22.0 and platelet 162,000. Differential white count 61% segmented neutrophils, 8% band forms, 18% lymphocytes, 10% monocytes and 3% eosinophils. Serum chemistry: Sodium 131, potassium 4.0, chloride 100, CO2 of 24, anion gap 7, BUN 31, creatinine 1.8, estimated glomerular filtration rate is 38 and glucose 117. Lactate 1.0. Calcium is 9.3. Urinalysis was normal. Chest x-ray demonstrated in the Emergency Department left perihilar consolidation, which may represent pneumonia, new from prior exam; elevation of left hemidiaphragm, MediPort catheter with tip in the SVC. ASSESSMENT: Pneumonia (healthcare-associated pneumonia), anemia, leukopenia and recent history of lung cancer, status post radiation therapy and chemotherapy. [facility] [address] [place] [address] HISTORY AND PHYSICAL Name: ISRAEL HOLMAN Room #: 519-P DIS IN M.R.#: [id number] Admission: 12/27/17 Attend Phys: Logan Tian MD, BENITA Discharge: 01/03/18 Date of : 52 Report #: [id number] PLAN: Admit to the hospital, IV antibiotic therapy. Follow cultures. Consult Dr. Coronado. <ELECTRONICALLY SIGNED> By: Logan Tian MD, IDRIS, FACEP 01/11/18 1553 1137 1306 Logan Tian MD, IDRIS, FACEP /nt
--- NOTE | ~2017-12-27 | HC ---
[facility] [place] [place] [address] CONSULTATION Name: ISRAEL HOLMAN Room #: 451-P ADM IN M.R.#: [id number] Admission: 12/27/17 Attend Phys: Logan Tian MD, [facility] Discharge: Date of : 52 Report #: [id number] THIS REPORT FOR: //name// CC: Logan Mirelesi Kierra Rouse [facility] REASON FOR CONSULTATION: History of lung cancer, pneumonia. REQUESTING PHYSICIAN: Dr. Tian. 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 He had a positive pulmonary artery margin. He then received 4 cycles of chemotherapy along with radiation therapy, completed on about 12/08/2017. Note the patient had had difficulties with cytopenias after his first cycle of chemotherapy and also renal insufficiency and has had some trouble with anemia since that time. The patient had recently talked to us on Wednesday, I had seen him in the clinic. He was having colored phlegm. A recent PET scan did raise a question of early pneumonia. He was begun on levofloxacin. He had a fever over the weekend up to 102, was sent to ER and admitted on Wednesday. Here, he was continued on levofloxacin IV and given vancomycin and his fever appears to be defervescing. The patient denies any headache. He says his temperature has been below 100 per his recollection since he has been here. No nausea. He does have some slight constipation, no vomiting, no blood in his urine or stool that he is aware of. No new ankle arm swelling or skin rashes. PAST MEDICAL HISTORY: Past history is notable for the history of the stage 3 non-small cell lung cancer. 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 He also has a history of low testosterone, history of hypertension, history of renal insufficiency, also history of severe right ankle arthritis and also history of GERD, and also appendectomy. 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 He stopped smoking 5 years ago; prior to that, a pack per day for 20 years, may have been some asbestos in his work, had drank 2-3 beers per night in the past. No street drugs. FAMILY HISTORY: Dad/father from complication of lymphoma. Mother had scleroderma and of complications. One brother alive and well, one [facility] [address] [place] [address] CONSULTATION Name: ISRAEL HOLMAN Room #: 451-P ADM IN M.R.#: [id number] Admission: 12/27/17 Attend Phys: Logan Tian MD, FAAF Discharge: Date of : 51 Report #: [id number] stepchild, has a grandchild who is 14 years old. He is a good athlete, plays baseball, has a very supportive . PHYSICAL EXAMINATION: GENERAL: The patient appears his stated age. VITAL SIGNS: Height is 5 feet 6 inches, 167.6 cm. Weight is 205 pounds, which is 92.9 kilograms. Blood pressure is 110/60, pulse of 85, respirations 16, O2 sat 98, temperature 98.8. MOOD: The patient is alert, pleasant and conversant. NEUROLOGIC: Face is symmetrical, moving all extremities. LUNGS: Slightly diminished on the right side with a few soft rhonchi. HEENT: Oropharynx is clear without injection, erythema, leukoplakia or thrush. LYMPHATICS: No enlarged lymph nodes in the supraclavicular, cervical, axillary or inguinal region. ABDOMEN: Slightly obese. No masses. EXTREMITIES: Without clubbing, cyanosis or edema. LABORATORY DATA: Here is notable for creatinine of 1.7. Transaminases normal. Total bilirubin 1.1, which was baseline for the patient in the past. Albumin 2.7. Iron studies: Iron 25, TIBC 148, percent saturation 17. Coags back in September were normal. White count on admission 3.9, hemoglobin was 7.7, today is 6.7, MCV has been in the 90.3 range, platelets 162 range, RDW 18.3 range. Differential has a few extra lymphocytes and monocytes. UA, without red cells. ASSESSMENT AND PLAN: 1. Stage 3 squamous cell cancer, had been contemplating addition of durvalumab. We will wait until the patient feels better. 2. Pneumonia. I agree with antibiotics. We will also add aerosol treatments and guaifenesin and also incentive spirometry. 3. Hypertension. Meds as needed. 4. Cytopenias especially anemia. Given questionable iron, we will give several days of iron to make sure the patient has adequate iron. We may also need to consider erythropoietin if the patient keeps dropping his red cells. We will probably consider checking retic count. We will need to wait until after transfusions. We will also check Hemoccult for blood, though there is no obvious gross bleeding. 5. Malnutrition. Encouraged use of eggs and supplements. We will follow. <ELECTRONICALLY SIGNED> By: Sammy Coronado MD 12/30/17 0827 [id number] 1406 Sammy Coronado MD /nt
[2017-12-27 11:54] VITALS: BP 117/76
[~2017-12-27 11:54] MED LIST changes: +MIRALAX17 GM PO; +TYLENOL PM EX-1 EACH PO
[2017-12-27 12:48] LABS: CALCIUM 9.3 mg/dL (8.5-10.1); CREATININE 1.8 mg/dL (0.7-1.3); HEMOGLOBIN 7.7 gm/dL (14.0-18.0); MCH 31.5 pg (26.0-34.0); MCHC 34.9 g/dL (28.0-37.0); MCV 90.3 fL (80.0-100.0); PLATELET COUNT 162 thou/uL (150-400); RBC 2.44 mil/uL (4.50-6.00); RDW 18.3 % (10.5-14.5); WBC 3.9 thou/uL (4.0-11.0)
[2017-12-27 13:28] LABS: ABSOLUTE NEUTROPHILS 2.7 thou/uL (1.4-8.2); PLATELET ESTIMATE NORMAL
[2017-12-27 14:02] LABS: URINE BILIRUBIN NEGATIVE (Negative); URINE BLOOD NEGATIVE (Negative); URINE CLARITY CLEAR; URINE COLOR YELLOW; URINE GLUCOSE-RANDOM* NEGATIVE (Negative); URINE KETONES NEGATIVE (Negative); URINE LEUKOCYTES-REFLEX NEGATIVE (Negative); URINE NITRITE-REFLEX NEGATIVE (Negative); URINE PROTEIN (DIPSTICK) NEGATIVE (Negative); URINE UROBILINOGEN 0.2 E.U./dl (0.2-1.0)
[2017-12-27 14:47] VITALS: BP 109/61
[2017-12-27 17:44] VITALS: BP 107/73
[2017-12-27 19:23] VITALS: BP 119/67
[2017-12-27 23:40] VITALS: BP 108/61
[2017-12-28 03:36] VITALS: BP 106/70
[2017-12-28 08:00] VITALS: BP 110/59
[2017-12-28 15:43] VITALS: BP 109/60
[2017-12-28 19:15] VITALS: BP 111/54
[2017-12-29 03:55] LABS: % SATURATION 17 % (20-39); ALBUMIN 2.7 g/dL (3.4-5.0); CALCIUM 9.1 mg/dL (8.5-10.1); CREATININE 1.7 mg/dL (0.7-1.3); IRON 25 ug/dL (65-175); POTASSIUM 4.1 mmol/L (3.5-5.1); TIBC 148 ug/dL (250-450); TOTAL BILIRUBIN 1.1 mg/dL (<0.1-1.0); TOTAL PROTEIN 6.5 g/dL (6.4-8.2)
[2017-12-29 04:25] VITALS: BP 108/70
[2017-12-29 05:18] LABS: HEMOGLOBIN 6.7 gm/dL (14.0-18.0); MCHC 34.3 g/dL (28.0-37.0)
[2017-12-29 05:22] LABS: MCH 31.2 pg (26.0-34.0); PLATELET COUNT 160 thou/uL (150-400); RBC 2.15 mil/uL (4.50-6.00); RDW 18.2 % (10.5-14.5); WBC 3.7 thou/uL (4.0-11.0)
[2017-12-29 05:27] LABS: HEMATOCRIT 19.6 % (42.0-52.0)
[2017-12-29 08:00] VITALS: BP 110/60
[2017-12-29 09:36] LABS: ABSOLUTE NEUTROPHILS 2.4 thou/uL (1.4-8.2); ANISOCYTOSIS 1+; HYPOCHROMASIA 1+; PLATELET ESTIMATE NORMAL
[2017-12-29 13:45] VITALS: BP 121/63
[2017-12-29 15:34] VITALS: BP 114/69
[2017-12-29 16:07] LABS: HEMATOCRIT 23.3 % (42.0-52.0); HEMOGLOBIN 8.3 gm/dL (14.0-18.0)
[2017-12-29 19:03] VITALS: BP 114/61
[2017-12-30 03:41] VITALS: BP 121/59
[2017-12-30 06:19] LABS: HEMATOCRIT 20.9 % (42.0-52.0); HEMOGLOBIN 7.5 gm/dL (14.0-18.0); MCH 31.9 pg (26.0-34.0); MCHC 35.8 g/dL (28.0-37.0); MCV 89.1 fL (80.0-100.0); PLATELET COUNT 156 thou/uL (150-400); RBC 2.35 mil/uL (4.50-6.00); RDW 16.8 % (10.5-14.5)
[2017-12-30 06:29] LABS: CALCIUM 8.8 mg/dL (8.5-10.1); CREATININE 1.6 mg/dL (0.7-1.3); POTASSIUM 4.1 mmol/L (3.5-5.1)
[2017-12-30 07:06] LABS: FOLIC ACID 8.2 ng/mL (8.6-58.9)
[2017-12-30 07:21] LABS: ABSOLUTE NEUTROPHILS 3.1 thou/uL (1.4-8.2)
[2017-12-30 07:22] LABS: POLYCHROMASIA 1+
[2017-12-30 07:36] VITALS: BP 113/73
[2017-12-30 14:14] VITALS: BP 136/74
[2017-12-30 15:25] VITALS: BP 115/70
[2017-12-30 22:08] VITALS: BP 115/70
[2017-12-31 04:27] VITALS: BP 115/70
[2017-12-31 06:19] LABS: ALBUMIN 2.6 g/dL (3.4-5.0); CALCIUM 9.1 mg/dL (8.5-10.1); CREATININE 1.5 mg/dL (0.7-1.3); TOTAL BILIRUBIN 0.9 mg/dL (<0.1-1.0); TOTAL PROTEIN 6.4 g/dL (6.4-8.2)
[2017-12-31 07:03] LABS: BASOPHILS 0.4 % (0.0-2.0); EOSINOPHILS 8.4 % (0.0-3.0); HEMATOCRIT 21.2 % (42.0-52.0); HEMOGLOBIN 7.5 gm/dL (14.0-18.0); LYMPHOCYTES 8.5 % (24.0-44.0); MCH 32.1 pg (26.0-34.0); MCHC 35.3 g/dL (28.0-37.0); MONOCYTES 11.1 % (1.0-8.0); PLATELET COUNT 175 thou/uL (150-400); POLYS 71.6 % (36.0-66.0); RBC 2.33 mil/uL (4.50-6.00); RDW 17.1 % (10.5-14.5); WBC 4.2 thou/uL (4.0-11.0)
[2017-12-31 08:00] VITALS: BP 113/59
[2017-12-31 19:17] VITALS: BP 109/70
[2017-12-31 23:13] VITALS: BP 109/70
[2018-01-01 04:30] LABS: CREATININE 1.6 mg/dL (0.7-1.3); POTASSIUM 4.2 mmol/L (3.5-5.1)
[2018-01-01 05:10] LABS: BASOPHILS 0.4 % (0.0-2.0); EOSINOPHILS 6.6 % (0.0-3.0); HEMATOCRIT 20.1 % (42.0-52.0); HEMOGLOBIN 7.1 gm/dL (14.0-18.0); LYMPHOCYTES 10.3 % (24.0-44.0); MCH 31.7 pg (26.0-34.0); MCHC 35.3 g/dL (28.0-37.0); MCV 89.8 fL (80.0-100.0); MONOCYTES 10.6 % (1.0-8.0); PLATELET COUNT 179 thou/uL (150-400); POLYS 72.1 % (36.0-66.0); RBC 2.23 mil/uL (4.50-6.00); RDW 16.7 % (10.5-14.5); WBC 4.2 thou/uL (4.0-11.0)
[2018-01-01 07:30] VITALS: BP 108/51
[2018-01-01 19:30] VITALS: BP 113/62
[2018-01-01 22:34] VITALS: BP 113/62
[2018-01-02 04:35] LABS: HEMOGLOBIN 7.5 gm/dL (14.0-18.0); MCHC 34.9 g/dL (28.0-37.0); MONOCYTES 10.2 % (1.0-8.0)
[2018-01-02 04:38] LABS: ABSOLUTE NEUTROPHILS 3.4 thou/uL (1.4-8.2); BASOPHILS 0.3 % (0.0-2.0); EOSINOPHILS 7.2 % (0.0-3.0); HEMATOCRIT 21.4 % (42.0-52.0); LYMPHOCYTES 10.6 % (24.0-44.0); MCH 31.6 pg (26.0-34.0); MCV 90.5 fL (80.0-100.0); PLATELET COUNT 192 thou/uL (150-400); POLYS 71.7 % (36.0-66.0); RBC 2.36 mil/uL (4.50-6.00); RDW 16.8 % (10.5-14.5); WBC 4.7 thou/uL (4.0-11.0)
[2018-01-02 04:53] LABS: ALBUMIN 2.5 g/dL (3.4-5.0); CREATININE 1.6 mg/dL (0.7-1.3); POTASSIUM 4.2 mmol/L (3.5-5.1); TOTAL BILIRUBIN 0.6 mg/dL (<0.1-1.0); TOTAL PROTEIN 6.3 g/dL (6.4-8.2)
[2018-01-02 07:13] VITALS: BP 98/62
[2018-01-02 15:55] VITALS: BP 113/56
[2018-01-02 19:53] VITALS: BP 113/57
[2018-01-03 05:36] LABS: HEMATOCRIT 21.7 % (42.0-52.0); HEMOGLOBIN 7.6 gm/dL (14.0-18.0); MCH 31.9 pg (26.0-34.0); MCV 91.1 fL (80.0-100.0); RBC 2.38 mil/uL (4.50-6.00); RDW 16.9 % (10.5-14.5); WBC 5.6 thou/uL (4.0-11.0)
[2018-01-03 05:46] LABS: CALCIUM 9.3 mg/dL (8.5-10.1); CREATININE 1.7 mg/dL (0.7-1.3)
[2018-01-03 07:19] VITALS: BP 119/66
[2018-01-03] MEDS ORDERED: FOLIC ACID 1 MG1 MG PO (13:30)
[2018-01-03] MEDS ORDERED: LEVAQUIN 500 M500 M1 PO (13:30)
[2018-01-03 13:40] VITALS: BP 119/66
== END 2018-01-03 14:21 | disposition home or self-care (01) | DRG 871 ==
LOC: ER 11:54 → 4W 14:05 → EROBS 14:05 → 4W 17:27 → ENTRNSPT 01-03 14:09 → EDTRNSPTSTS 01-03 14:15 → 4W 01-03 14:21
PROVIDERS: Emergency Medicine; Family Medicine
PROC: 30233N1 Transfusion of Nonautologous Red Blood Cells into Peripheral Vein, Percutaneous Approach (ICD-10-PCS; principal; 2017-12-29)
DX: A41.9 Sepsis, unspecified organism (principal); J18.9 Pneumonia, unspecified organism; E46 Unspecified protein-calorie malnutrition; K21.9 Gastro-esophageal reflux disease without esophagitis; M13.871 Other specified arthritis, right ankle and foot; D75.9 Disease of blood and blood-forming organs, unspecified; D64.9 Anemia, unspecified; N18.9 Chronic kidney disease, unspecified; I12.9 Hypertensive chronic kidney disease with stage 1 through stage 4 chronic kidney disease, or unspecified chronic kidney disease; Z90.49 Acquired absence of other specified parts of digestive tract; Z92.21 Personal history of antineoplastic chemotherapy; Z87.891 Personal history of nicotine dependence; Z85.118 Personal history of other malignant neoplasm of bronchus and lung; Z80.7 Family history of other malignant neoplasms of lymphoid, hematopoietic and related tissues; Z82.69 Family history of other diseases of the musculoskeletal system and connective tissue; Z68.32 Body mass index [BMI] 32.0-32.9, adult; Z92.3 Personal history of irradiation; Z79.899 Other long term (current) drug therapy
CPT/HCPCS: 10045

== ENCOUNTER 2018-01-07 09:19 | Inpatient (IN) | payer OTHER, MEDICARE ==
[~2018-01-07] VITALS: Ht 167.6 cm; Wt 90.3 kg
--- NOTE | ~2018-01-07 | HC ---
[facility] [place] [address] CONSULTATION Name: ISRAEL HOLMAN Room #: 455-P [facility] IN M.R.#: [id number] Admission: 01/07/18 Attend Phys: Logan Tian MD, [facility] Discharge: Date of : 51 Report #: [id number] THIS REPORT FOR: //name// CC: Logan Tian DATE OF SERVICE: 01/07/2018 REASON FOR CONSULTATION: I was asked to evaluate concerning pneumonia in the setting of lung cancer. HISTORY OF PRESENT ILLNESS: The patient is a 67-year-old with diagnosis of squamous cell carcinoma stage 3A involving his left lung. Resection performed on 06/08/2017. Pulmonary artery margin was positive. Four cycles of chemotherapy followed by radiation therapy completed on 12/08/2017. During his chemotherapy, developed cytopenias and acute kidney injury. Blood counts remained low postop and bone marrow biopsy was suggestive of possible MDS, although post-chemo cytopenia was still suggested. He was hospitalized on 12/27/2017 with increased cough and sputum production and left lower lobe pneumonitis. He had temperature up to 102 degrees. He was hospitalized, placed on vancomycin and Levaquin. By 01/03/2018, he was discharged on Levaquin. Cultures remained normal bety. Chest x-ray stabilized. Once home, he developed increased shortness of breath within the next 24 hours. No fever, chills or sweats. Minimal cough, sputum production had been clear in nature. No hemoptysis. No pleuritic chest pain. No PND, orthopnea. He notes that he cannot even walk across the room without getting significantly short of breath. No peripheral edema. REVIEW OF SYSTEMS: CONSTITUTIONAL: Notes no headache, pharyngitis symptoms, postnasal drainage, change in vision or hearing. SKIN: Without rash. LYMPH: Negative. CARDIOPULMONARY: As above. GASTROINTESTINAL: Negative. GENITOURINARY: Negative. JOINTS: Negative. NEUROLOGICAL: Negative. HEMATOLOGIC: As above. PSYCHIATRIC: Negative. PAST MEDICAL HISTORY: Hypertension, hypogonadal, chronic kidney disease, arthritis of his right ankle, gastroesophageal reflux and appendectomy. FAMILY HISTORY: Lymphoma, scleroderma. SOCIAL HISTORY: Retired labor, past smoker, moderate alcohol intake. No HIV [facility] [address] [place] [address] CONSULTATION Name: ISRAEL HOLMAN Room #: 455-P [facility] IN [facility]#: [id number] Admission: 01/07/18 Attend Phys: Logan Tian MD, FAAF Discharge: Date of : 51 Report #: [id number] risks. ALLERGIES: None. MEDICATIONS: As noted on his MAR. PHYSICAL EXAMINATION: GENERAL: The patient was lying in bed, resting comfortably, room air saturation adequate. VITAL SIGNS: Stable. HEENT: Head is atraumatic. Eyes without conjunctivitis or scleral icterus. Mouth without lesion or mucositis. NECK: Supple. No JVD. No thyromegaly or mass. LUNGS: Crackles in the left base posteriorly with no consolidation or rub. HEART: Regular, without murmur, gallop or rub. ABDOMEN: Soft and nontender. No hepatosplenomegaly or mass. EXTREMITIES: Left chest incision unremarkable and well healed. Right chest Port-A-Cath site without erythema or drainage. No palpable adenopathy. SKIN: Without rash. EXTREMITIES: Without peripheral edema. No cyanosis. NEUROLOGIC: Normal including cranial nerves. Strength in his lower extremity sensation and deep tendon reflexes. GENITORECTAL: Not performed. PSYCHIATRIC: Mood normal. Mental status normal. LABORATORY STUDIES: Chest x-ray, left middle and lower lobe infiltrate. Hemoglobin 8, WBC 5.3, 67% segs, 10% lymphs, 10% eosinophils, 11% monocytes, platelet count 213,000. Sodium 132, potassium 3.9, bicarbonate 24, creatinine 2, baseline 1.5. Blood cultures, sputum culture pending. IMPRESSION: Stage 3 squamous cell carcinoma of the lung involving the left chest, presents with left lower lobe pulmonary infiltrate. Initially, diagnosed as bacterial pneumonia. Would now raise question of radiation pneumonitis versus progression of his cancer versus pulmonary emboli. This is in the setting of chronic kidney disease with acute exacerbation and anemia. The patient has underlying hypertension. RECOMMENDATION: We will continue antibiotic coverage and repeat cultures. Also, check urine antigen, viral respiratory panel. Repeat CT scan of the chest. With his renal insufficiency, we will need to discuss whether it would be safe for IV contrast. Check ABG. [address] [address] CONSULTATION Name: ISRAEL HOLMAN Room #: 455-P [facility] IN M.R.#: [id number] Admission: 01/07/18 Attend Phys: Logan Tian MD, FAAF Discharge: Date of : 51 Report #: [id number] PLAN: I would favor adding corticosteroids. We will have Pulmonary Medicine assist in the evaluation. They have known him from before. <ELECTRONICALLY SIGNED> By: Austin López MD 01/10/18 1253 1457 0210 Austin López MD /nt
--- NOTE | ~2018-01-07 | HC ---
[facility] [place] [address] CONSULTATION Name: ISRAEL HOLMAN Room #: 455-P ADM IN M.R.#: [id number] Admission: 01/07/18 Attend Phys: Logan Tian MD, FAAF Discharge: Date of : 51 Report #: [id number] THIS REPORT FOR: //name// CC: Austin Cai MD REASON FOR CONSULTATION: History of lung cancer and shortness of air. HISTORY OF PRESENT ILLNESS: The patient is a 67-year-old gentleman who was found to have a squamous cell cancer, earlier this year it was resected and he had positive margins. This was stage 3A. Because of this, he then received concurrent chemotherapy and radiation therapy. This was completed about a month ago on about 12/08/2017. He was in the hospital about a week ago after a febrile illness and cough and it seemed to get better. He is readmitted now with progressive shortness of air, really without any worsening of his cough, no fever, no new pleuritic pain, does have some old post-thoracotomy type pain. No new diarrhea, no new skin rash. No new dysuria, no blood in his urine or stool. He thought his hemoglobin is getting low, but it is actually the same. Here in the hospital he has had a CAT scan that appears to show a localized infiltrate in the right lung without fever, cough and is very suspicious for radiation pneumonitis. I talked with Dr. Dejuan López yesterday. PAST MEDICAL HISTORY: Notable for the stage 3A squamous cell lung cancer resected with positive margins, status post completion of chemotherapy and radiation therapy about a month ago. Also, history of severe cytopenias with his first round of chemotherapy, though a repeat bone marrow showed normal, but he has had persistent anemia. His last admit, he had iron deficiency, was given 2 doses of Venofer, has not improved much since that time. His B12 was normal, his folate was low and is being replaced. We are considering Aranesp. He also has a history of hypertension, not recently needing therapy; mild COPD, chronic kidney disease with creatinine around 1.5-1.9, esophageal reflux, also history of appendectomy. 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 Stopped smoking about 5 years ago, prior to that a pack per day for 5 years. May have been some asbestos at his work. Also, drank 2-3 beers per night in the past. No street drugs. FAMILY HISTORY: Father from complication of lymphoma. Mother had scleroderma, from complications. One brother alive and well, one step child, has a grandchild who is 14 years old. Good athlete, likes to watch and play baseball. The patient has a very supportive . [address] [address] CONSULTATION Name: ISRAEL HOLMAN Room #: 455-P [facility] IN M.R.#: [id number] Admission: 01/07/18 Attend Phys: Logan Tian MD, FAAF Discharge: Date of : 51 Report #: [id number] PHYSICAL EXAMINATION: VITAL SIGNS: Height is 5 feet 6 inches, 167.6 cm. Weight is 199 pounds or 90.3 kg. Blood pressure is recently 110/70 with O2 sat 99% on room air, respirations 18, pulse 96, temperature afebrile at 97.5. MOOD: The patient is alert, conversant. He is sitting in a chair. NEUROLOGIC: Moving all extremities. Face is symmetrical. Speech and thought pattern appear to be normal. HEENT: Oropharynx clear without injection, thrush, leukoplakia or erythroderma. LYMPHATICS: No enlarged lymph nodes in the supraclavicular, cervical, axillary or inguinal region. Port in right upper chest and neck. LUNGS: Has mostly clear sounds, maybe a little bit diminished in left mid lung swenson. No crackles in the bases. No definite rhonchi. Definitely, no wheezes. ABDOMEN: Obese. No masses. EXTREMITIES: Without clubbing or cyanosis. There may be some trace edema. LABORATORY DATA: This admit notable for BUN of 34, creatinine of 1.9. Last time, his creatinine on admission got down to 1.5 as the lowest. Recent other electrolytes normal. White count on admit was 5.3, today 4.7, unchanged from last visit. Hemoglobin 7.3 consistent with most recent month of therapy, MCV 90, which is stable; RDW of 16.7, stable; platelets 197, stable. Differential nonacute. Influenza A and viral panel is pending. IMAGING: This admit include the CT chest done yesterday that is described as showing since the last time the postoperative changes from left lower lobectomy. I talked about the lung resected should be the left side. We have also patchy ground-glass opacity within the majority of the left lung that could represent multifocal pneumonia or pneumonitis related to radiation therapy could also give that appearance was mentioned. ASSESSMENT AND PLAN: 1. Shortness of air with localized radiographic infiltrate. Afebrile with minimal phlegm. I agree with others and suspect radiation pneumonitis, timing is correct. I agree with steroids, currently on methylprednisolone, and aerosol inhalers. We will also check O2 sat walking and resting and titrate oxygen up if needed. 2. History of stage 3A resected squamous cell lung cancer, non-recurrent. 3. Anemia. On last admit received IV iron. B12 was normal, folate was low. We will add back again. May consider adding EPO or Procrit to help anemia. 4. Chronic kidney disease, stable about 1.9. 5. Hypertension. No current medications. 6. Protein-calorie malnutrition. Encouraged supplements. [facility] [address] [place] [address] CONSULTATION Name: ISRAEL HOLMAN Room #: 455-P [facility] IN ..#: [id number] Admission: 01/07/18 Attend Phys: Logan Tian MD, FAAF Discharge: Date of : 51 Report #: [id number] We will follow. <ELECTRONICALLY SIGNED> By: Sammy Coronado MD 01/10/18 0827 0933 1455 Sammy Coronado MD /nt
--- NOTE | ~2018-01-07 | EKG ---
[address] [address] ELECTROCARDIOGRAM REPORT Name: ISRAEL HOLMAN Room #: 455-P ADM IN M.R.#: [id number] Admission: 01/07/18 Attend Phys: Logan Tian MD, FAAF Discharge: Date of : 51 Report #: [id number] THIS REPORT FOR: //name// [facility] ED Test Date: 2018-01-07 Test Time: 09:27:24 Pat Name: ISRAEL HOLMAN Department: Room: [facility] Gender: M Embroidery Operator: GEOVANNA : 1950 Requested By: Eagle Garcia Order Number: [id number] MD: Lizandro Estrada Measurements Intervals [place] Rate: 90 P: 33 NE: 124 QRS: -13 QRSD: 87 T: 43 QT: 380 QTc: 465 Interpretive Statements Sinus rhythm Compared to ECG 09/15/2017 10:52:00 No significant changes Electronically Signed On 01-08-2018 10:05:38 CDT by Lizandro Estrada [email or web address] <ELECTRONICALLY SIGNED> By: Lizandro Estrada MD, [facility] 01/08/18 1005 D: [id number] 6 Lizandro Estrada MD, FACC /EPI
--- NOTE | ~2018-01-07 | HC ---
[facility] [place] [address] CONSULTATION Name: ISRAEL HOLMAN Room #: 455-P [facility] IN M.R.#: [id number] Admission: 01/07/18 Attend Phys: Logan Tian MD, [facility] Discharge: Date of : 51 Report #: [id number] THIS REPORT FOR: //name// CC: Logan Tian MD TYPE OF REPORT: Pulmonary consultation. REFERRAL PHYSICIAN: Logan Tian M.D. REASON FOR REFERRAL: Progressive infiltrates. HISTORY OF PRESENT ILLNESS: The patient is a 67-year-old white male who presents to Emergency Room with progressive dyspnea. A pulmonary consultation was requested. The patient was diagnosed with nonsmall-cell lung cancer in June of 2017. He was finally seen by Dr. Guthrie at that time. At that time, he was found to have a 6-cm left lower lobe lung mass. The patient had a [id number] tobacco use. He has a history of hypertension and gastroesophageal reflux disease. He stopped smoking 5 years ago. Previous pulmonary function tests performed in May 2017 showed mild airflow obstruction, FEV1 was normal. It measured 2.67 liters, 97% predicted. PET CT prior to a definitive procedure showed no evidence of metastases. The patient then underwent left lower lobe resection on 06/08/2017. Pathology showed squamous cell lung cancer. He was felt to be in stage 3A. The pulmonary artery margins were, however, positive for malignancy. The patient then received 4 cycles of chemotherapy along with radiation therapy, which was completed on 12/08/2017. The patient had trouble tolerating chemotherapy with cytopenias along with renal insufficiency. The patient was admitted on December 27 to [facility] for fever and dyspnea. Chest x-ray showed mild left lower lobe infiltrates. He was given Levaquin. Symptoms improved and was subsequently dismissed. The patient returns to the Emergency Room with worsening dyspnea for the past 3 days. He denies any fever. His cough is minimally productive. His chest x-ray on this presentation shows increasing infiltrates involving the left lower lobe. Otherwise, the patient denies any recent nausea, vomiting or diarrhea. PAST MEDICAL HISTORY: As mentioned above. Mild COPD with mild obstruction on [facility] [address] [place] [address] CONSULTATION Name: ISRAEL HOLMAN Room #: 455-P ADM IN ..#: [id number] Admission: 01/07/18 Attend Phys: Logan Tian MD, FAAF Discharge: Date of : 51 Report #: [id number] PFTs performed in May 2017, nonsmall-cell lung cancer as mentioned above, status post left lower lobe lobectomy on 06/08/2017 with a positive margins involving the pulmonary arteries. Status post chemo and radiation therapy. Last radiation was given early part of December 2017. Status post Port-A-Cath placement. Severe right ankle arthritis, gastroesophageal reflux disease and hypertension. ALLERGIES: None to medications. HOME MEDICATIONS: Recent course of Levaquin, folic acid and Cozaar. FAMILY HISTORY: Noncontributory. SOCIAL HISTORY: The patient has smoked in the past but quit 5 years ago. Denies any alcohol use. He is . REVIEW OF SYSTEMS: As mentioned above, otherwise 10-point system review negative. PHYSICAL EXAMINATION: GENERAL: He is awake and alert, in no distress. VITAL SIGNS: Temperature is 98 degrees Fahrenheit, pulse is 90, respiratory rate is 20, blood pressure 110/80 mmHg and saturation 99%. HEENT: Normocephalic and atraumatic. NECK: Supple, without any lymphadenopathy or thyromegaly. CHEST: Breath sounds are good without obvious rales or wheezes. CARDIOVASCULAR: Normal S1 and S2. There are no murmurs or gallop. There is no JVD. There is no carotid bruit. Pulses are 2+/4+ bilaterally. ABDOMEN: Soft and nontender. No organomegaly or masses felt. GENITOURINARY: Deferred. RECTAL: Deferred. EXTREMITIES: There is no edema, cyanosis or clubbing. RADIOLOGICAL DATA: Chest x-ray as mentioned above showing increase in left-sided infiltrates, elevated left hemidiaphragm, right lung field is clear. Port-A-Cath is noted in the right lung field. Noncontrast CT chest shows ill-defined patchy alveolar and interstitial infiltrates. No air bronchogram is noted. EKG shows no acute ischemic changes. LABORATORY DATA: Sputum culture from December 27 grew gram-negative rods. Electrolytes: Sodium 132, potassium 3.9, chloride 100, CO2 of 24, BUN 36 and creatinine is 2.0 and baseline creatinine had been around 1.5. WBC 5300, hemoglobin 8.0 and platelets are normal. Albumin 2.5 on his last admission. IMPRESSION: 1. Progressive infiltrates in this 67-year-old white male. He is afebrile. He [facility] [address] [place] [address] CONSULTATION Name: ISRAEL HOLMAN Room #: 455-P ADM IN M.R.#: [id number] Admission: 01/07/18 Attend Phys: Logan Tian MD, FAAF Discharge: Date of : 51 Report #: [id number] does not show any evidence of leukocytosis. The patient was recently given broad spectrum antibiotics. Also, recently completed radiation therapy in early part of December of this year. The radiographic changes and clinical presentation likely suggest radiation-induced lung injury. Pneumonia is felt to be less likely. 2. Squamous cell cancer, left lower lobe, stage 3A, status post left lower lobe lobectomy with positive margins involving the pulmonary artery. Status post chemo and radiation therapy. 3. Chronic kidney disease following chemotherapy. 4. Mild chronic obstructive pulmonary disease without obvious exacerbation. 5. History of tobacco use. 6. Hypertension. 7. Gastroesophageal reflux disease. 8. Severe protein-calorie malnutrition. RECOMMENDATIONS AND DISCUSSION: I discussed with Dr. Austin López. Presentation likely suggests radiation-induced lung injury. Recommend pulsed steroid therapy. I think it is reasonable to continue broad spectrum antibiotics. If there is clinical response to corticosteroids, we would expect few weeks of prednisone depending on the patient's response. Bronchodilators will be recommended. DVT and GI prophylaxis will be initiated. Thank you for this consultation. <ELECTRONICALLY SIGNED> By: Jan Cai MD 01/08/18 1518 1603 0232 Jan Cai MD /nt
--- NOTE | ~2018-01-07 | H ---
[facility] [place] [address] HISTORY AND PHYSICAL Name: ISRAEL HOLMAN Room #: 455-P ADM IN M.R.#: [id number] Admission: 01/07/18 Attend Phys: Logan Tian MD, FAAF Discharge: Date of : 52 Report #: [id number] THIS REPORT FOR: //name// CC: Austin Cai MD DATE OF SERVICE: 01/07/2018 CHIEF COMPLAINT: Pneumonia; debility; anemia. HISTORY OF PRESENT ILLNESS: The patient is a 67-year-old white male, well known to me. He has a recent past medical history of lung cancer. He underwent left lower lobectomy at [facility] followed by chemotherapy and then subsequently radiation therapy, which he finished not long ago. He was hospitalized for pneumonia this past week and discharged on Wednesday of this week. He did have a stable chest x-ray and is slowly improving hemoglobin without fever on oral antibiotics. He was discharged on oral Levaquin on Wednesday, started feeling poorly at home on Wednesday. He was admitted through the Emergency Department on 01/07/2018 with stable chest x-ray, hemoglobin of 8 and worsening debility. Infectious Disease, Pulmonary and Hematology/Oncology consults were placed. PAST MEDICAL HISTORY: Lung cancer, left lower lobectomy via left-sided thoracotomy 06/2017, cyst excised from tailbone, appendectomy, hypertension, chemotherapy, radiation therapy placed on 07/09/2017, blood transfusions, recent pneumonia/radiation pneumonitis. MEDICATIONS: Cozaar 100 mg p.o. daily, MiraLax, Tylenol as needed, Levaquin 500 mg daily for 7 days following his discharge. ALLERGIES: No known drug allergies. SOCIAL HISTORY: Smoked in the past 20 years, quit smoking 5 years ago. Drinks alcohol socially. 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 He is and lives in [place], [place]. FAMILY HISTORY: Father had cancer involving his lymph nodes. Mother of scleroderma. No family history of colon cancer. REVIEW OF SYSTEMS: CONSTITUTIONAL: No fever or chills. No nausea or vomiting, no diarrhea. He is debilitated. EYES: No visual changes. ENT: No problems with hearing, swallow, taste or smell. [facility] [address] [place] [address] HISTORY AND PHYSICAL Name: ISRAEL HOLMAN Room #: 455-P [facility] IN ..#: [id number] Admission: 01/07/18 Attend Phys: Logan Tian MD, FAAF Discharge: Date of : 52 Report #: [id number] CARDIOVASCULAR: No chest pain or palpitations. RESPIRATORY: He has dyspnea, exertional dyspnea, pneumonia and some element of radiation pneumonitis following radiation therapy, history of lung cancer with diminished left lung volumes following left lower lobectomy. GASTROINTESTINAL: No abdominal pain. GENITOURINARY: No problems urinating. MUSCULOSKELETAL: He is debilitated. No muscle or joint pain. NEUROLOGIC: No paresis, paralysis or paresthesias. PSYCHIATRIC: Frustrated, not depressed. DERMATOLOGIC: No disturbing lesions or rash. Remainder of system review is negative. OBJECTIVE: VITAL SIGNS: Temperature is 36.7, pulse 107, respirations 18, blood pressure 103/66, pulse ox on room air is 99%. He weighs 199 pounds or 90.27 kg. GENERAL: He is in no acute distress, conversant, speaks in full sentences. HEENT: Pupils equal, round, reactive to light and accommodation. Extraocular muscles intact. Pharynx unremarkable. NECK: Supple. COR: S1, S2. CHEST: Scattered coarse breath sounds, especially left side. ABDOMEN: Soft, nontender. EXTREMITIES: No cyanosis, clubbing or edema. NEUROLOGIC: Intact without focal neurologic deficit. LABORATORY DATA: CBC: White count is 5.3, hemoglobin 8.0, hematocrit 23.3, platelets 213,000. Differential: White count 67.2% segmented neutrophils, 10.7%, lymphocytes, 11.8% monocytes, 10% eosinophils, 0.3% basophils, absolute neutrophil count 3.5 thousand per microliter. Serum chemistry: Sodium 132, potassium 3.9, chloride 100, CO2 of 24, BUN 36, creatinine 2.0. Estimated glomerular filtration rate is 34, glucose 101, calcium is 9.8. IMAGING: Chest x-ray shows an improvement in right basilar infiltrate, persistent left mid lung and basilar infiltrate. No significant effusion. CT scan does show ground-glass appearance in the left lung consistent with multifocal pneumonia and some element of radiation pneumonitis. ASSESSMENT: Pneumonia, anemia, history of lung cancer, renal insufficiency. PLAN: Admit to hospital, IV antibiotics. Follow cultures. Infectious Disease, Heme/Onc and Pulmonary consults placed. <ELECTRONICALLY SIGNED> By: Logan Tian MD, FAAFP, FACEP 01/11/18 1553 [id number] 1727 Logan Tian MD, FAAFP, FACEP /nt
[~2018-01-07 09:19] MED LIST changes: +FOLIC ACID 1 MG1 MG PO; +LEVAQUIN 500 M500 M1 PO
[2018-01-07 09:21] VITALS: BP 103/66
[2018-01-07 10:04] LABS: ABSOLUTE NEUTROPHILS 3.5 thou/uL (1.4-8.2); BASOPHILS 0.3 % (0.0-2.0); CALCIUM 9.8 mg/dL (8.5-10.1); HEMATOCRIT 23.3 % (42.0-52.0); LYMPHOCYTES 10.7 % (24.0-44.0); MCH 30.8 pg (26.0-34.0); MCHC 34.1 g/dL (28.0-37.0); MCV 90.3 fL (80.0-100.0); MONOCYTES 11.8 % (1.0-8.0); PLATELET COUNT 213 thou/uL (150-400); POLYS 67.2 % (36.0-66.0); POTASSIUM 3.9 mmol/L (3.5-5.1); RBC 2.58 mil/uL (4.50-6.00); RDW 16.3 % (10.5-14.5); WBC 5.3 thou/uL (4.0-11.0)
[2018-01-07 15:45] VITALS: BP 115/68
[2018-01-07 16:08] VITALS: BP 112/80
[2018-01-07 17:34] VITALS: BP 98/56
[2018-01-07 19:35] VITALS: BP 111/64
[2018-01-08 07:45] VITALS: BP 110/70
[2018-01-08 07:55] LABS: HEMATOCRIT 20.7 % (42.0-52.0); HEMOGLOBIN 7.3 gm/dL (14.0-18.0); MCH 31.6 pg (26.0-34.0); MCHC 35.1 g/dL (28.0-37.0); RBC 2.3 mil/uL (4.50-6.00); RDW 16.7 % (10.5-14.5); WBC 4.7 thou/uL (4.0-11.0)
[2018-01-08 08:08] LABS: CALCIUM 9.3 mg/dL (8.5-10.1); CREATININE 1.9 mg/dL (0.7-1.3); POTASSIUM 4.2 mmol/L (3.5-5.1)
[2018-01-08 19:15] VITALS: BP 103/56
[2018-01-09 06:30] LABS: ABSOLUTE NEUTROPHILS 8.2 thou/uL (1.4-8.2); BASOPHILS 0.1 % (0.0-2.0); HEMATOCRIT 20.3 % (42.0-52.0); HEMOGLOBIN 7.1 gm/dL (14.0-18.0); LYMPHOCYTES 2.8 % (24.0-44.0); MCH 31.8 pg (26.0-34.0); MCHC 34.9 g/dL (28.0-37.0); MCV 91.1 fL (80.0-100.0); MONOCYTES 3.5 % (1.0-8.0); PLATELET COUNT 192 thou/uL (150-400); POLYS 93.6 % (36.0-66.0); RBC 2.23 mil/uL (4.50-6.00); RDW 16.6 % (10.5-14.5); WBC 8.8 thou/uL (4.0-11.0)
[2018-01-09 06:46] LABS: CALCIUM 9.1 mg/dL (8.5-10.1); CREATININE 1.9 mg/dL (0.7-1.3); POTASSIUM 3.8 mmol/L (3.5-5.1)
[2018-01-09 07:46] VITALS: BP 114/64
[2018-01-09 19:44] VITALS: BP 103/74
[2018-01-10 06:03] LABS: HEMATOCRIT 21.4 % (42.0-52.0); HEMOGLOBIN 7.2 gm/dL (14.0-18.0); MCH 30.9 pg (26.0-34.0); MCHC 33.7 g/dL (28.0-37.0); MCV 91.5 fL (80.0-100.0); RBC 2.34 mil/uL (4.50-6.00); RDW 16.7 % (10.5-14.5); WBC 8.5 thou/uL (4.0-11.0)
[2018-01-10 06:15] LABS: ALBUMIN 2.4 g/dL (3.4-5.0); CALCIUM 8.8 mg/dL (8.5-10.1); CREATININE 1.8 mg/dL (0.7-1.3); POTASSIUM 3.7 mmol/L (3.5-5.1); TOTAL BILIRUBIN 0.3 mg/dL (<0.1-1.0); TOTAL PROTEIN 6.1 g/dL (6.4-8.2)
[2018-01-10 07:48] VITALS: BP 124/76
[2018-01-10 15:48] VITALS: BP 113/68
[2018-01-10 19:55] VITALS: BP 119/67
[2018-01-11 07:22] VITALS: BP 121/71
[2018-01-11] MEDS ORDERED: PREDNISONE 10 M10 MG PO (16:05)
[2018-01-11 16:13] VITALS: BP 121/71
[2018-01-11 23:07] LABS: ADENOVIRUS Negative (Negative); INFLUENZA A Negative (Negative); INFLUENZA B Negative (Negative); METAPNEUMOVIRUS Negative (Negative); PARAINFLUENZA 1 Negative (Negative); PARAINFLUENZA 2 Negative (Negative); PARAINFLUENZA 3 Negative (Negative); RHINOVIRUS Negative (Negative); RSV A Negative (Negative); RSV B Negative (Negative)
[2018-01-12 18:06] LABS: HISTOPLASMA MYCELIAL-CF Negative (Neg:<1:2)
[2018-01-12 19:07] LABS: HISTOPLASMA MYCELIAL-ID Negative (Negative)
== END 2018-01-11 18:15 | disposition home or self-care (01) | DRG 205 ==
LOC: ER 09:19 → 4W 12:02 → EROBS 12:02 → 4W 16:48 → ENTRNSPT 01-11 16:32 → 4W 01-11 18:15
PROVIDERS: Emergency Medicine; Internal Medicine; Internal Medicine Pulmonary Disease; Specialist
DX: J70.0 Acute pulmonary manifestations due to radiation (principal); J96.01 Acute respiratory failure with hypoxia; E43 Unspecified severe protein-calorie malnutrition; K21.9 Gastro-esophageal reflux disease without esophagitis; M19.071 Primary osteoarthritis, right ankle and foot; D50.9 Iron deficiency anemia, unspecified; D52.9 Folate deficiency anemia, unspecified; I12.9 Hypertensive chronic kidney disease with stage 1 through stage 4 chronic kidney disease, or unspecified chronic kidney disease; J44.9 Chronic obstructive pulmonary disease, unspecified; N18.9 Chronic kidney disease, unspecified; D64.81 Anemia due to antineoplastic chemotherapy; D63.0 Anemia in neoplastic disease; R73.9 Hyperglycemia, unspecified; T38.0X5A Adverse effect of glucocorticoids and synthetic analogues, initial encounter; Y92.89 Other specified places as the place of occurrence of the external cause; Z90.49 Acquired absence of other specified parts of digestive tract; Z87.891 Personal history of nicotine dependence; Z92.21 Personal history of antineoplastic chemotherapy; Z80.8 Family history of malignant neoplasm of other organs or systems; Z85.118 Personal history of other malignant neoplasm of bronchus and lung; Z90.2 Acquired absence of lung [part of]; Z68.32 Body mass index [BMI] 32.0-32.9, adult
CPT/HCPCS: 10047

== ENCOUNTER → 2018-01-17 | Outpatient (CLI) | payer OTHER, MEDICARE ==
[~2018-01-17] MED LIST changes: +PREDNISONE 10 M10 MG PO
== END ==
LOC: RAD 11:03
DX: J18.9 Pneumonia, unspecified organism (principal); J98.11 Atelectasis

== ENCOUNTER → 2018-02-07 | Outpatient (CLI) | payer OTHER, MEDICARE | LOC: RAD 12:11 | DX: J18.9 Pneumonia, unspecified organism (principal); R91.8 Other nonspecific abnormal finding of lung field ==

== ENCOUNTER → 2018-03-17 | Outpatient (CLI) | payer OTHER, MEDICARE | LOC: CAT 03-07 13:08 | DX: J84.10 Pulmonary fibrosis, unspecified (principal); R91.8 Other nonspecific abnormal finding of lung field; R09.02 Hypoxemia ==

== ENCOUNTER 2018-04-05 14:55 | Emergency (ER) | payer OTHER, MEDICARE ==
[~2018-04-05] VITALS: Ht 167.6 cm; Wt 93.0 kg
[2018-04-05] MEDS ORDERED: PREDNISONE 5 MG5 M1 PO (16:46)
[2018-04-05] MEDS ORDERED: CBD OIL TOP (16:49)
[2018-04-05 16:50] LABS: ABSOLUTE NEUTROPHILS 5.3 thou/uL (1.4-8.2); BASOPHILS 0.4 % (0.0-2.0); EOSINOPHILS 1.6 % (0.0-3.0); HEMOGLOBIN 9.6 gm/dL (14.0-18.0); LYMPHOCYTES 15.3 % (24.0-44.0); MCH 34.5 pg (26.0-34.0); MCHC 35.7 g/dL (28.0-37.0); MCV 96.6 fL (80.0-100.0); MONOCYTES 9.7 % (1.0-8.0); PLATELET COUNT 158 thou/uL (150-400); RBC 2.79 mil/uL (4.50-6.00); RDW 14.3 % (10.5-14.5); WBC 7.3 thou/uL (4.0-11.0)
[2018-04-05] MEDS ORDERED: DELSYM COU30 MG/5 M1 PO (16:50)
[2018-04-05 17:09] LABS: CALCIUM 9.3 mg/dL (8.5-10.1); CREATININE 1.4 mg/dL (0.7-1.3); POTASSIUM 3.9 mmol/L (3.5-5.1)
[2018-04-05] MEDS ORDERED: LASIX 20 MG TAB20 MG PO (17:09)
[2018-04-05] MEDS ORDERED: PREDNISONE 20 M20 MG PO (17:09)
[2018-04-05] MEDS ORDERED: DOXYCYCLINE 10100 MG PO (17:09)
[2018-04-05] MEDS ORDERED: VENTOLIN HFA 1818 GM INH (17:23)
[2018-04-05] MEDS ORDERED: LEVAQUIN 500 M500 M1 PO (17:23)
[2018-04-05 17:39] VITALS: BP 121/71
== END 2018-04-05 17:56 | disposition home or self-care (01) ==
LOC: ER 14:55
PROVIDERS: Emergency Medicine
DX: J70.0 Acute pulmonary manifestations due to radiation (principal); C34.92 Malignant neoplasm of unspecified part of left bronchus or lung; D64.9 Anemia, unspecified; I10 Essential (primary) hypertension; K21.9 Gastro-esophageal reflux disease without esophagitis; M19.071 Primary osteoarthritis, right ankle and foot; Z87.891 Personal history of nicotine dependence; Z90.2 Acquired absence of lung [part of]; Z90.49 Acquired absence of other specified parts of digestive tract; W90.0XXA Exposure to radiofrequency, initial encounter

== ENCOUNTER → 2018-05-16 | Outpatient (CLI) | payer OTHER, MEDICARE ==
[~2018-05-16] MED LIST changes: +CBD OIL TOP; +DELSYM COU30 MG/5 M1 PO; +DOXYCYCLINE 10100 MG PO; +LASIX 20 MG TAB20 MG PO; +PREDNISONE 20 M20 MG PO; +PREDNISONE 5 MG5 M1 PO; +VENTOLIN HFA 1818 GM INH
== END ==
LOC: RAD 11:38
DX: R06.00 Dyspnea, unspecified (principal)

== ENCOUNTER → 2018-06-09 | Outpatient (CLI) | payer OTHER, MEDICARE ==
[~2018-06-09] VITALS: Ht 167.6 cm; Wt 95.6 kg
--- NOTE | ~2018-06-09 | O ---
[facility] [place] [address] OPERATIVE REPORT Name: ISRAEL HOLMAN Room #: REG [facility]#: [id number] Admission: 06/09/18 ������������������ Attend Phys: Jan Cai MD Discharge: ������������������ Date of : 52 Report #: [id number] THIS REPORT FOR: //name// CC: Logan Cai CLINICAL HISTORY: A 67-year-old white male with history of non-small cell lung cancer status post left lower lobe lobectomy. A recent CT chest shows questionable lesion involving the left lower lobe stump. A diagnostic bronchoscopy was performed. POSTOPERATIVE DIAGNOSES: 1. Normal left lower lobe stump. No evidence of endobronchial lesion seen. 2. Ecchymosis, both airways due to bronchoscopic trauma. 3. Mild tracheobronchomalacia. DESCRIPTION OF PROCEDURE: Following obtained consent and risks and benefits had been explained to the patient, which include infection, bleeding, pneumothorax, procedure performed in endoscopy suite. The patient was given sedation by the Anesthesia Department. Diprivan was used. Topical lidocaine 2% and 1% was used for local anesthetic. Then, a flexible fiberoptic bronchoscope was then introduced through the left naris without difficulty. The vocal cords normal. Trachea and the rest of the airway showed mild tracheobronchomalacia. The chika was normal. Right mainstem bronchus, right upper lobe, right middle lobe and right lower lobe were unremarkable. Left mainstem bronchus was normal. Left upper lobe was grossly unremarkable other than mild mucosal edema. The left lower lobe stump appears to be well healed. No evidence of endobronchial lesion seen. Bronchial wash was performed in the left upper lobe and the stump area. Secretions were clear. Vital signs and saturation throughout the study were within normal range. The patient tolerated the procedure well. Bronchial wash will be sent for cytologic evaluation. ��������������������������������������������� ���������������������������������������� By: ��������������������������������������������� 1336 1400 Jan Cai MD /nt
[2018-06-09 12:43] VITALS: BP 126/79
--- NOTE | 2018-06-10 16:07 | PATH ---
[facility] [address] [place] [address] PATHOLOGY RPT PROCEDURE Name: ISRAEL HOLMAN Room #: REG [facility]#: [id number] ������������������ Admission: 06/09/18 ������������������ Date of : 52 Discharge: Report #: [id number] Path Case #: [id number] Note [facility] Accession Number: [id number] TESTS RESULT FLAG UNITS REF RANGE LAB Clinician Provided Cytology Information No. of containers..01 Other (Miscellaneous) Source: BAL DIAGNOSIS: BAL NEGATIVE FOR MALIGNANT CELLS. NORMAL BRONCHIAL CELLS ARE PRESENT. Pathologist ICD10: 02 J44.9 Signed out by: Ashlee Helms MD, Pathologist NPI- [id number] Performed by: La Grimes, Senior Security Engineer ([facility]) Gross description: 01 25ML, WHITE, CLOUDY /LCS FLAG LEGEND: L-Low Normal,H-High Normal,LL-Alert Low,HH-Alert High <-Panic Low,>-Panic High,A-Abnormal,AA-Critical Abnormal Performed at: 01 [facility] [address] [place] [address] [address] [place] [address] Bernardino Uribe MD, [address] [address] Ashlee Helms MD, Specimen Comment: A courtesy copy of this report has been sent to Specimen Comment: [phone]. Specimen Comment: Report sent to Performed at: 01 [facility] [address] [place] [address] [address], [place], [place] [id number] MD Bernardino Uribe MD Phone: [phone]
== END | disposition home or self-care (01) ==
LOC: CATH 11:47
DX: J98.09 Other diseases of bronchus, not elsewhere classified (principal); R58 Hemorrhage, not elsewhere classified; Z85.118 Personal history of other malignant neoplasm of bronchus and lung
CPT/HCPCS: 50010; 62110; 62900; 70005

== ENCOUNTER → 2018-08-17 | Outpatient (CLI) | payer OTHER, MEDICARE | LOC: RAD 11:54 | DX: J43.9 Emphysema, unspecified (principal); J98.4 Other disorders of lung ==

== ENCOUNTER → 2018-12-20 | Outpatient (CLI) | payer OTHER, MEDICARE | LOC: RAD 13:33 | DX: R06.02 Shortness of breath (principal) ==

== ENCOUNTER 2019-01-05 03:23 | Emergency (ER) | payer OTHER, MEDICARE ==
[~2019-01-05] VITALS: Ht 167.6 cm; Wt 95.3 kg
[2019-01-05] MEDS ORDERED: PEPCID20 MG PO (03:45)
[2019-01-05] MEDS ORDERED: PREDNISONE 5 MG5 M1 PO (03:46)
[2019-01-05] MEDS ORDERED: VITAMIN D3400 UNIT PO (03:46)
[2019-01-05 04:15] LABS: ABSOLUTE NEUTROPHILS 8.1 thou/uL (1.4-8.2); BASOPHILS 0.4 % (0.0-2.0); EOSINOPHILS 0.8 % (0.0-3.0); HEMATOCRIT 28.2 % (42.0-52.0); HEMOGLOBIN 9.6 gm/dL (14.0-18.0); LYMPHOCYTES 5.5 % (24.0-44.0); MCH 33.3 pg (26.0-34.0); MCHC 34.1 g/dL (28.0-37.0); MCV 97.7 fL (80.0-100.0); MONOCYTES 6.9 % (1.0-8.0); PLATELET COUNT 144 thou/uL (150-400); POLYS 86.4 % (36.0-66.0); RBC 2.88 mil/uL (4.50-6.00); RDW 14.6 % (10.5-14.5); WBC 9.4 thou/uL (4.0-11.0)
[2019-01-05 04:27] LABS: ANION GAP 9 mmol/L (7-16); BUN 34 mg/dL (7-18); CALCIUM 9.1 mg/dL (8.5-10.1); CHLORIDE 102 mmol/L (98-107); CO2 23 mmol/L (21-32); CREATININE 1.4 mg/dL (0.7-1.3); GLUCOSE 144 mg/dL (74-106); POTASSIUM 3.8 mmol/L (3.5-5.1); SODIUM 134 mmol/L (136-145)
[2019-01-05 04:35] LABS: ALBUMIN 3.6 g/dL (3.4-5.0); DIRECT BILIRUBIN 0.1 mg/dL (<0.1-0.3); LIPASE 170 U/L (73-393); SGOT 18 U/L (15-37); SGPT 15 U/L (30-65); TOTAL BILIRUBIN 0.5 mg/dL (<0.1-1.0); TOTAL PROTEIN 6.3 g/dL (6.4-8.2); TROPONIN-I <0.06 ng/mL (<0.06)
[2019-01-05 05:49] LABS: URINE BILIRUBIN NEGATIVE (Negative); URINE BLOOD TRACE (Negative); URINE CLARITY CLEAR; URINE COLOR YELLOW; URINE GLUCOSE-RANDOM* NEGATIVE (Negative); URINE KETONES NEGATIVE (Negative); URINE LEUKOCYTES-REFLEX NEGATIVE (Negative); URINE NITRITE-REFLEX NEGATIVE (Negative); URINE PROTEIN (DIPSTICK) NEGATIVE (Negative); URINE SPECIFIC GRAVITY 1.015 (1.005-1.035); URINE UROBILINOGEN 0.2 E.U./dl (0.2-1.0)
[2019-01-05] MEDS ORDERED: NORCO 5-325 TA1 EAC1 PO (06:12)
[2019-01-05] MEDS ORDERED: KRISTALOSE20 GM PO ×2 (06:12→06:16)
[2019-01-05] MEDS ORDERED: BENTYL 20 MG TA20 M1 PO ×2 (06:12→06:16)
[2019-01-05 06:27] VITALS: BP 143/78
--- NOTE | 2019-01-05 12:53 | EKG ---
[place] [address] [facility] [place] [address] ELECTROCARDIOGRAM REPORT Name: MCKENZIE HOLMANY New Room #: DEP [facility]#: [id number] Admission: 01/05/19 Attend Phys: Discharge: 01/05/19 Date of : 52 Report #: [id number] THIS REPORT FOR: //name// [facility] ED Test Date: 2019-01-05 Test Time: 04:03:48 Pat Name: ISRAEL HOLMAN Department: Room: Gender: Flatbed Owner Operator: : 1950 Requested By: Vangie Ibrahim Order Number: [id number] MD: Zenon Sims Measurements Intervals [place] Rate: 48 P: 26 ND: 128 QRS: -23 QRSD: 91 T: 50 QT: 520 QTc: 465 Interpretive Statements Sinus bradycardia Consider anterior infarct Compared to ECG 01/07/2018 09:27:24 Myocardial infarct finding now present Sinus rhythm no longer present Electronically Signed On 01-05-2019 12:53:30 CDT by Zenon Sims [email or web address] <ELECTRONICALLY SIGNED> By: Zenon Sims MD 01/05/19 1253 2 2 Zenon Sims MD /TESHA
== END 2019-01-05 06:27 | disposition home or self-care (01) ==
LOC: ER 03:23
PROVIDERS: Emergency Medicine
DX: R10.11 Right upper quadrant pain (principal); R10.12 Left upper quadrant pain; R10.31 Right lower quadrant pain; R10.32 Left lower quadrant pain; K21.9 Gastro-esophageal reflux disease without esophagitis; I10 Essential (primary) hypertension; M19.071 Primary osteoarthritis, right ankle and foot; Z90.49 Acquired absence of other specified parts of digestive tract; Z85.118 Personal history of other malignant neoplasm of bronchus and lung; Z87.891 Personal history of nicotine dependence

== ENCOUNTER → 2019-04-20 | Outpatient (CLI) | payer OTHER, MEDICARE ==
[~2019-04-20] VITALS: Ht 165.1 cm; Wt 90.7 kg
[~2019-04-20] MED LIST changes: +BENTYL 20 MG TA20 M1 PO; +KRISTALOSE20 GM PO; +NORCO 5-325 TA1 EAC1 PO; +PEPCID20 MG PO; +RAYOS5 MG PO; +VITAMIN D3400 UNIT PO
[2019-04-20 10:35] VITALS: BP 133/73
[2019-04-20 11:16] LABS: HEMATOCRIT 34.8 % (42.0-52.0); HEMOGLOBIN 11.6 gm/dL (14.0-18.0); MCH 32.4 pg (26.0-34.0); MCHC 33.4 g/dL (28.0-37.0); RBC 3.59 mil/uL (4.50-6.00); RDW 14.9 % (10.5-14.5); WBC 6.9 thou/uL (4.0-11.0)
[2019-04-20 11:28] LABS: PROTIME 10.1 Seconds (9.3-11.4)
[2019-04-20 12:30] VITALS: BP 127/81
[2019-04-20 12:45] VITALS: BP 127/81
== END | disposition home or self-care (01) ==
LOC: SPEC 09:57
PROVIDERS: Radiology Vascular & Interventional Radiology
DX: Z45.2 Encounter for adjustment and management of vascular access device (principal); I10 Essential (primary) hypertension; K21.9 Gastro-esophageal reflux disease without esophagitis; Z85.118 Personal history of other malignant neoplasm of bronchus and lung; Z98.890 Other specified postprocedural states; Z87.891 Personal history of nicotine dependence; Z79.899 Other long term (current) drug therapy; Z90.49 Acquired absence of other specified parts of digestive tract

== ENCOUNTER → 2019-09-11 | Outpatient (CLI) | payer OTHER, MEDICARE | LOC: RAD 10:16 | PROVIDERS: ATTEND Internal Medicine Pulmonary Disease | DX: J98.4 Other disorders of lung (principal); J84.10 Pulmonary fibrosis, unspecified; Z85.118 Personal history of other malignant neoplasm of bronchus and lung ==

== ENCOUNTER → 2020-02-07 | Outpatient (CLI) | payer OTHER, MEDICARE | LOC: RAD 10:02 | PROVIDERS: ATTEND Pediatrics | DX: J84.10 Pulmonary fibrosis, unspecified (principal); J98.4 Other disorders of lung ==

== ENCOUNTER → 2020-02-20 | Outpatient (CLI) | payer OTHER, MEDICARE | LOC: RAD 12:40 | PROVIDERS: ATTEND Family Medicine | DX: M11.261 Other chondrocalcinosis, right knee (principal); M25.762 Osteophyte, left knee; M25.761 Osteophyte, right knee; M25.462 Effusion, left knee; M25.461 Effusion, right knee ==

== ENCOUNTER 2020-12-07 17:56 | Inpatient (IN) | payer OTHER, MEDICARE ==
[~2020-12-07] VITALS: Ht 167.6 cm; Wt 95.7 kg
[2020-12-07 17:59] VITALS: BP 120/75
[2020-12-07] MEDS ORDERED: ALLOPURINOL 10100 M1 PO (18:10)
[2020-12-07] MEDS ORDERED: VENTOLIN HFA 1818 GM INH (18:10)
[2020-12-07 19:14] LABS: ABSOLUTE NEUTROPHILS 7.1 thou/uL (1.4-8.2); BASOPHILS 0.2 % (0.0-2.0); EOSINOPHILS 0.5 % (0.0-3.0); HEMATOCRIT 32.8 % (42.0-52.0); HEMOGLOBIN 11.1 gm/dL (14.0-18.0); LYMPHOCYTES 5.4 % (24.0-44.0); MCH 32.9 pg (26.0-34.0); MCHC 33.9 g/dL (28.0-37.0); MCV 97.3 fL (80.0-100.0); MONOCYTES 10.2 % (1.0-8.0); PLATELET COUNT 163 thou/uL (150-400); POLYS 83.7 % (36.0-66.0); RBC 3.37 mil/uL (4.50-6.00); RDW 14.8 % (10.5-14.5); WBC 8.5 thou/uL (4.0-11.0)
[2020-12-07 20:17] LABS: CALCIUM 8.5 mg/dL (8.5-10.1); CREATININE 1.6 mg/dL (0.7-1.3); POTASSIUM 4.1 mmol/L (3.5-5.1)
[2020-12-07 20:24] LABS: ALBUMIN 3.4 g/dL (3.4-5.0); TOTAL BILIRUBIN 0.6 mg/dL (0.2-1.0); TOTAL PROTEIN 6.4 g/dL (6.4-8.2)
[2020-12-07] MEDS ORDERED: TRELEGY ELLIPT1 EACH INH (20:49)
[2020-12-07 21:39] VITALS: BP 115/65
[2020-12-07 22:16] VITALS: BP 132/41
[2020-12-07 22:19] VITALS: BP 131/47
[2020-12-07 22:29] VITALS: BP 131/74
--- NOTE | 2020-12-07 22:31 | NUR ---
DR MARTÍNEZ NOTIFIED AND SPOKE WITH PROVIDER
[2020-12-07 22:50] VITALS: BP 115/68
[2020-12-07 23:20] LABS: D-DIMER 0.7 ug/mLFEU (0.19-0.50); INR 0.97; PROTIME 10.6 Seconds (10.5-12.1)
[2020-12-08 03:27] VITALS: BP 140/78
[2020-12-08 04:16] LABS: CALCIUM 8.2 mg/dL (8.5-10.1); CREATININE 1.6 mg/dL (0.7-1.3); POTASSIUM 4.3 mmol/L (3.5-5.1); TOTAL BILIRUBIN 0.5 mg/dL (0.2-1.0); TOTAL PROTEIN 6.6 g/dL (6.4-8.2)
[2020-12-08 04:35] LABS: BASOPHILS 0.1 % (0.0-2.0); HEMATOCRIT 31.6 % (42.0-52.0); LYMPHOCYTES 5.9 % (24.0-44.0); MCH 33.8 pg (26.0-34.0); MCHC 34.8 g/dL (28.0-37.0); MCV 97.1 fL (80.0-100.0); MONOCYTES 1.7 % (1.0-8.0); PLATELET COUNT 136 thou/uL (150-400); POLYS 92.3 % (36.0-66.0); RBC 3.26 mil/uL (4.50-6.00); RDW 14.9 % (10.5-14.5); WBC 6.5 thou/uL (4.0-11.0)
[2020-12-08 04:50] LABS: URINE BILIRUBIN NEGATIVE (Negative); URINE BLOOD TRACE (Negative); URINE CLARITY CLEAR; URINE COLOR YELLOW; URINE GLUCOSE-RANDOM* NEGATIVE (Negative); URINE KETONES NEGATIVE (Negative); URINE LEUKOCYTES-REFLEX NEGATIVE (Negative); URINE NITRITE-REFLEX NEGATIVE (Negative); URINE PROTEIN (DIPSTICK) NEGATIVE (Negative); URINE UROBILINOGEN 0.2 E.U./dl (0.2-1.0)
[2020-12-08 07:32] VITALS: BP 140/86
[2020-12-08] MEDS ORDERED: TYLENOL325 MG PO (07:43)
--- NOTE | 2020-12-08 07:49 | H ---
[facility] [place] [address] HISTORY AND PHYSICAL Name: ISRAEL HOLMAN Room #: 356-P ADM IN M.R.#: [id number] Admission: 12/07/20 Attend Phys: Logan Tian MD, FAAF Discharge: Date of : 52 Report #: [id number] THIS REPORT FOR: cc: Logan Tian MD FAA FACEP Logan Tian MD FAA FACEP Joss White DO ~ cc: Logan Tian DATE OF SERVICE: 12/07/2020 HISTORY OF PRESENT ILLNESS: This 69-year-old white male who was admitted with a 3-day history of fever, chills, cough, achiness and he is COVID positive in the Emergency Room. He had the Moderna vaccine x2 in May and June. He was feeling well until 3 days ago. He denies cigarette smoking since he had left lower lung lobectomy in 2018 for nonsmall cell lung cancer, followed by radiation therapy. PAST MEDICAL HISTORY: Lung cancer as above, mild COPD, hypertension. MEDICATIONS ON ADMISSION: Trelegy 1 puff daily , losartan 100mg daily, folic acid 4mg daily, albuterol sulfate HFA 2 puffs q.i.d. allopurinol 100mg daily, vitamin D 1000 units daily ALLERGIES: None. SOCIAL HISTORY: Lives with his . He is retired. REVIEW OF SYSTEMS: Denies significant chest pain, confusion, dysphagia, rash, nausea, vomiting, diarrhea or dysuria. PHYSICAL EXAMINATION: GENERAL: Pleasant white male sitting up in no distress. VITAL SIGNS: BP 120/75, pulse 120, respiration 16, temperature 37.4. HEAD: No rash or trauma. EARS, NOSE, THROAT: No definite lesions. EYES: No icterus. NECK: Supple, without adenopathy. LUNGS: Decreased breath sounds in the left base. Cough is slightly congested. HEART: Rhythm regular, without gallop. ABDOMEN: Soft, without mass or tenderness. EXTREMITIES: No edema or cyanosis. NEUROLOGIC: Alert and oriented. He is an accurate historian. LABORATORY DATA: White count is 8500 with a left shift, hemoglobin 11.1, platelets 163,000, MCV 97. BUN 29, creatinine 1.6, estimated GFR 43, sodium 134, potassium 4.1, CO2 22, glucose 118, lactic acid 0.8, calcium 8.5. [address] [address] HISTORY AND PHYSICAL Name: ISRAEL HOLMAN Room #: 356-P [facility] IN ..#: [id number] Admission: 12/07/20 Attend Phys: Logan Tian MD, FAAF Discharge: Date of : 52 Report #: [id number] enzymes normal. Albumin normal. Procalcitonin normal. Chest x-ray shows infiltrate in the left lower lung consistent with pneumonia and was compared with an x-ray of 02/2020. IMPRESSION: 1. COVID-19 with concern over SARS CoV-2 respiratory failure. 2. Probable left lower lobe pneumonia. 3. History of left lower lobe lobectomy for nonsmall cell cancer. 4. History of hypertension. 5. History of chronic obstructive pulmonary disease. PLAN: Admit for aggressive care with remdesivir, Decadron, anticoagulants, antibiotics. Pulmonary and Infectious Disease to see. The patient is followed by Dr. Cai of Pulmonary who will see him here. <ELECTRONICALLY SIGNED> By: Joss White DO 12/08/20 0749 04 28 Joss White DO /nt
[2020-12-08 10:37] VITALS: BP 140/86
[2020-12-08 11:23] VITALS: BP 136/76
--- NOTE | 2020-12-08 14:24 | NUR ---
DR. MARTÍNEZ PHONED FOR CONSULT THIS AFTERNOON. DR. MARTÍNEZ REQUESTING FOR PATIENT TO BE MONITORED ONE MORE NIGHT IN THE HOSPITAL AND TO DISCHARGE TOMORROW IF NO OVERNIGHT EVENTS. Nigel MARTÍNEZ WILL SEE PATIENT TODAY.
[2020-12-08 15:22] VITALS: BP 114/69
[2020-12-08 19:55] VITALS: BP 135/74
[2020-12-09 03:00] VITALS: BP 137/87
[2020-12-09 03:00] LABS: ABSOLUTE NEUTROPHILS 11.5 thou/uL (1.4-8.2); HEMATOCRIT 29.4 % (42.0-52.0); HEMOGLOBIN 10.3 gm/dL (14.0-18.0); LYMPHOCYTES 3.4 % (24.0-44.0); MCH 33.6 pg (26.0-34.0); MCHC 34.8 g/dL (28.0-37.0); MCV 96.3 fL (80.0-100.0); MONOCYTES 4.8 % (1.0-8.0); PLATELET COUNT 148 thou/uL (150-400); POLYS 91.8 % (36.0-66.0); RBC 3.06 mil/uL (4.50-6.00); RDW 14.5 % (10.5-14.5); WBC 12.5 thou/uL (4.0-11.0)
[2020-12-09 03:23] LABS: ALBUMIN 2.9 g/dL (3.4-5.0); CALCIUM 7.9 mg/dL (8.5-10.1); CREATININE 1.4 mg/dL (0.7-1.3); POTASSIUM 4.2 mmol/L (3.5-5.1); TOTAL BILIRUBIN 0.3 mg/dL (0.2-1.0); TOTAL PROTEIN 6.3 g/dL (6.4-8.2)
[2020-12-09 03:52] LABS: D-DIMER 0.54 ug/mLFEU (0.19-0.50); INR 1.04; PROTIME 11.3 Seconds (10.5-12.1)
--- NOTE | 2020-12-09 06:26 | NUR ---
C/O headache once woken up this am for lab draw. Tylenol given with some relief. COVID PCR sent and tested positive (repeat test). MRSA swab ,sputum and urine specimen for legionella sent to lab. Pt. slept some after tylenol. Tolerating room air well with no respiratory distress. He has been afebrile. Up ad linn in room with steady gait.
[2020-12-09 07:48] VITALS: BP 110/63
[2020-12-09] MEDS ORDERED: CEFDINIR300 MG PO (11:20)
[2020-12-09] MEDS ORDERED: PREDNISONE 20 M20 M1 PO (11:21)
[2020-12-09] MEDS ORDERED: TRELEGY ELLIPT1 EACH INH (11:22)
[2020-12-09] MEDS ORDERED: PROAIR HFA8.5 GM INH (11:23)
[2020-12-09 11:29] VITALS: BP 126/76
[2020-12-09 12:21] VITALS: BP 140/86
[2020-12-10 15:07] LABS: HIV ANTIBODY Non Reactive (Non Reactive)
--- NOTE | 2020-12-11 13:01 | D ---
[facility] [place] [address] DISCHARGE SUMMARY Name: ISRAEL HOLMAN Room #: 356-P [facility] IN M.R.#: [id number] Admission: 12/07/20 Attend Phys: Logan Tian MD, FAA Discharge: 12/09/20 Date of : 52 Report #: [id number] THIS REPORT FOR: cc: Logan Tian MD [facility] FACE Logan Tian MD FAA FACE Joss White DO ~ cc: Logan Tian MD, Jan Cai MD DATE OF SERVICE: 12/09/2020 HISTORY OF PRESENT ILLNESS: This is a 69-year-old white male who was admitted with fever, chills, cough and findings of COVID-19 positive in the Emergency Room. He had received the Moderna vaccine in 05/2020 and 06/2020. PAST MEDICAL HISTORY: Include a lung cancer in 2019, treated with radiation therapy, for non-small cell lung cancer. He has had hypertension, mild COPD, gout. HOSPITAL COURSE: GENERAL: ____ physical in the Emergency Room revealed a pleasant white male, coughing and is complaining of achiness, but in no acute distress. VITAL SIGNS: Temperature was 37.4. HEAD AND NECK: Negative. LUNGS: Reveal decreased breath sounds in the left base. Cough is congested. HEART: Rhythm regular, without gallop. ABDOMEN: Soft, without abnormality. EXTREMITIES: No edema or cyanosis. NEUROLOGICAL: Essentially normal. LABORATORY DATA: White count was 8500 with a left shift, hemoglobin 11.1, MCV 97, platelets 163,000. BUN 29, creatinine 1.6, estimated GFR 43, sodium 134, potassium 4.1, CO2 of 22, glucose 118, lactic acid 0.8, calcium 8.5. Liver enzymes normal. Albumin normal. Procalcitonin normal. IMAGING DATA: Chest x-ray showed infiltrate in the left lower lung, worse from previous chest x-ray of 02/2020. The patient was admitted on IV antibiotics. His COVID-19 PCR swab was positive. He received remdesivir and dexamethasone. He was seen in consult by Dr. Cai of Pulmonary and Dr. López of Infectious Disease. The patient never required oxygen. Here, he improved. Final white count is 12,000, possible steroid effect. Hemoglobin 10.3. Potassium of 4.2, sodium 134, CO2 of 24, BUN 29, creatinine 1.4, estimated GFR 50. The patient improved, was ambulatory in his room, never required oxygen and stable vital signs and on 12/09/2020 was discharged home on cefdinir 300 mg b.i.d. for another 5 days, prednisone 20 mg daily for 5 days, Trelegy [address] [place] [address] DISCHARGE SUMMARY Name: ISRAEL HOLMAN Room #: 356-P DIS IN M.R.#: [id number] Admission: 12/07/20 Attend Phys: Logan Tian MD, FAAF Discharge: 12/09/20 Date of : 52 Report #: [id number] daily, folic acid 1 mg daily, allopurinol 100 mg daily, vitamin D 2000 units daily and losartan 100 mg daily. He will be on a low-salt diet. He will isolate from his at home for a total of 2 weeks until she is definitely tested as negative for COVID-19. FINAL DIAGNOSES: 1. Community-acquired left-lower lobe pneumonia. 2. COVID-19. 3. History of lung cancer. 4. Hypertension. 5. Mild chronic obstructive pulmonary disease. 6. Chronic kidney disease stage III. <ELECTRONICALLY SIGNED> By: Joss White DO 12/11/20 1301 1321 1444 Joss White DO /nt
== END 2020-12-09 14:13 | disposition home or self-care (01) | DRG 871 ==
LOC: ER 17:56 → 3W 20:53 → EROBS 20:53 → 3W 22:30
PROVIDERS: Internal Medicine; Nurse Practitioner; Specialist; ADMIT Family Medicine; ATTEND Family Medicine
PROC: XW033E5 Introduction of Remdesivir Anti-infective into Peripheral Vein, Percutaneous Approach, New Technology Group 5 (ICD-10-PCS; principal; 2020-12-07)
DX: A41.9 Sepsis, unspecified organism (principal); U07.1 COVID-19; J12.82 Pneumonia due to coronavirus disease 2019; J96.90 Respiratory failure, unspecified, unspecified whether with hypoxia or hypercapnia; E87.1 Hypo-osmolality and hyponatremia; J70.1 Chronic and other pulmonary manifestations due to radiation; J44.0 Chronic obstructive pulmonary disease with (acute) lower respiratory infection; E87.2 Acidosis; M10.9 Gout, unspecified; I12.9 Hypertensive chronic kidney disease with stage 1 through stage 4 chronic kidney disease, or unspecified chronic kidney disease; N18.30 Chronic kidney disease, stage 3 unspecified; K21.9 Gastro-esophageal reflux disease without esophagitis; M19.071 Primary osteoarthritis, right ankle and foot; Z92.21 Personal history of antineoplastic chemotherapy; Z85.118 Personal history of other malignant neoplasm of bronchus and lung; Z87.891 Personal history of nicotine dependence; Z92.3 Personal history of irradiation; Z90.49 Acquired absence of other specified parts of digestive tract; Z79.899 Other long term (current) drug therapy
CPT/HCPCS: 10879

== ENCOUNTER → 2020-12-25 | Outpatient (CLI) | payer OTHER, MEDICARE ==
[~2020-12-25] MED LIST changes: +ALLOPURINOL 10100 M1 PO; +CEFDINIR300 MG PO; +PREDNISONE 20 M20 M1 PO; +PROAIR HFA8.5 GM INH; +TRELEGY ELLIPT1 EACH INH; +TYLENOL325 MG PO
== END ==
LOC: RAD 15:10
PROVIDERS: ATTEND Family Medicine
DX: U07.1 COVID-19 (principal); J12.82 Pneumonia due to coronavirus disease 2019; R91.8 Other nonspecific abnormal finding of lung field; J84.89 Other specified interstitial pulmonary diseases

== ENCOUNTER → 2021-01-02 | Outpatient (CLI) | payer OTHER, MEDICARE | LOC: RAD 13:11 | PROVIDERS: ATTEND Family Medicine | DX: J98.4 Other disorders of lung (principal); R91.8 Other nonspecific abnormal finding of lung field; Z86.16 Personal history of COVID-19; Z85.118 Personal history of other malignant neoplasm of bronchus and lung ==

== ENCOUNTER → 2021-01-29 | Outpatient (CLI) | payer OTHER, MEDICARE | LOC: RAD 14:06 | PROVIDERS: ATTEND Family Medicine | DX: U07.1 COVID-19 (principal); J12.82 Pneumonia due to coronavirus disease 2019 ==

== ENCOUNTER → 2021-02-20 | Outpatient (CLI) | payer OTHER, MEDICARE | LOC: RAD 13:13 | PROVIDERS: ATTEND Family Medicine | DX: J84.10 Pulmonary fibrosis, unspecified (principal); J12.82 Pneumonia due to coronavirus disease 2019; Z85.118 Personal history of other malignant neoplasm of bronchus and lung ==